=== PATIENT | male | born 1995 | race Caucasian/White ===

== ENCOUNTER 2018-05-29 13:36 | Emergency (ER) | payer SELFPAY ==
--- NOTE | 2018-05-29 14:58 | RAD REPORT ---
EXAM DESCRIPTION: RAD - Chest Single View - 05/29/2018 2:53 pm CLINICAL HISTORY: Chest pain;Cough Chest pain. COMPARISON: CHEST PA AND LAT 2 VIEW dated 03/09/2014 FINDINGS: Portable technique limits examination quality. The lungs are grossly clear. The heart is normal in size. No displaced fractures. IMPRESSION: No acute intrathoracic process suspected.
--- NOTE | 2018-05-29 16:02 | EDPHYS ---
Physician Documentation [facility] Name: Yunier Mejias Age: 22 yrs Sex: Male : 1995 Arrival Date: 05/29/2018 Time: 13:39 Bed 6 Private MD: ED Physician Milton Helm HPI: 05/30 06:16 This 22 yrs old Male presents to ER via Ambulatory with complaints of Cough, kdr Diarrhea. 06:16 The patient or guardian reports airway noise, cough, that is intermittent, described as kdr mild, flu symptoms. Onset: The symptoms/episode began/occurred gradually, 2 day(s) ago. Severity of symptoms: At their worst the symptoms were mild, in the emergency department the symptoms are unchanged. Modifying factors: The symptoms are alleviated by nothing, the symptoms are aggravated by nothing. Associated signs and symptoms: Pertinent positives: diarrhea, Pertinent negatives: chest pain, ear ache, nausea, rhinorrhea, sore throat, vomiting. The patient has not experienced similar symptoms in the past. The patient has not recently seen a physician. Historical: - Allergies: 05/29 13:43 No Known Allergies; ss - Home Meds: 13:43 None [Active]; ss - PMHx: 13:43 None; ss - PSHx: 13:43 Appendectomy; ss - Immunization history:: Adult Immunizations up to date. - Social history:: Smoking status: Patient/guardian denies using tobacco. - Ebola Screening: : Patient denies exposure to infectious person Patient denies travel to an Ebola-affected area in the 21 days before illness onset No symptoms or risks identified at this time. ROS: 05/30 06:16 Constitutional: Negative for fever, chills, and weight loss, Eyes: Negative for injury, kdr pain, redness, and discharge, Neck: Negative for injury, pain, and swelling, Cardiovascular: Negative for chest pain, palpitations, and edema, Back: Negative for injury and pain, MS/Extremity: Negative for injury and deformity, Skin: Negative for injury, rash, and discoloration, Neuro: Negative for headache, weakness, numbness, tingling, and seizure activity. Psych: Negative for depression, anxiety, suicide ideation, homicidal ideation, and hallucinations, Allergy/Immunology: Negative for hives, rash, and allergies, Endocrine: Negative for neck swelling, polydipsia, polyuria, polyphagia, and marked weight changes. ENT: Positive for nasal discharge, rhinorrhea, Negative for drainage from ear(s), ear pain, foreign body sensation, hearing loss, pulling at ears, Teeth pain tinnitus, sinus congestion, dental pain, difficulty swallowing, difficulty handling secretions, hoarseness. Respiratory: Positive for cough, with no reported sputum, shortness of breath, on exertion. Negative for dyspnea on exertion, pleurisy, sputum production. Abdomen/GI: Positive for diarrhea, Negative for abdominal pain, nausea and vomiting, abdominal distension, anorexia, dysphagia, hematemesis, black/tarry stool, rectal pain, rectal bleeding. Exam: 06:16 Constitutional: This is a well developed, well nourished patient who is awake, alert, kdr and in no acute distress. Head/Face: Normocephalic, atraumatic. Eyes: Pupils equal round and reactive to light, extra-ocular motions intact. Lids and lashes normal. Conjunctiva and sclera are non-icteric and not injected. Cornea within normal limits. Periorbital areas with no swelling, redness, or edema. ENT: Nares patent. No nasal discharge, no septal abnormalities noted. Tympanic membranes are normal and external auditory canals are clear. Oropharynx with no redness, swelling, or masses, exudates, or evidence of obstruction, uvula midline. Mucous membranes moist. Neck: Trachea midline, no thyromegaly or masses palpated, and no cervical lymphadenopathy. Supple, full range of motion without nuchal rigidity, or vertebral point tenderness. No Meningismus. Chest/axilla: Normal chest wall appearance and motion. Nontender with no deformity. No lesions are appreciated. Cardiovascular: Regular rate and rhythm with a normal S1 and S2. No gallops, murmurs, or rubs. Normal PMI, no JVD. No pulse deficits. Respiratory: Lungs have equal breath sounds bilaterally, clear to auscultation and percussion. No rales, rhonchi or wheezes noted. No increased work of breathing, no retractions or nasal flaring. Abdomen/GI: Soft, non-tender, with normal bowel sounds. No distension or tympany. No guarding or rebound. No evidence of tenderness throughout. Back: No spinal tenderness. No costovertebral tenderness. Full range of motion. Skin: Warm, dry with normal turgor. Normal color with no rashes, no lesions, and no evidence of cellulitis. MS/ Extremity: Pulses equal, no cyanosis. Neurovascular intact. Full, normal range of motion. Neuro: Awake and alert, GCS 15, oriented to person, place, time, and situation. Cranial nerves II-XII grossly intact. Motor strength 5/5 in all extremities. Sensory grossly intact. Cerebellar exam normal. Normal gait. Psych: Awake, alert, with orientation to person, place and time. Behavior, mood, and affect are within normal limits. Vital Signs: 05/29 13:43 BP 137 / 89; Pulse 85; Resp 15; Temp 98.5(TE); Pulse Ox 97% on R/A; Weight 72.57 kg; ss Height 5 ft. 11 in. (180.34 cm); Pain 5/10; 15:45 BP 122 / 78; Pulse 81; Resp 18; Temp 97.9; Pulse Ox 99% on R/A; ph 13:43 Body Mass Index 22.32 (72.57 kg, 180.34 cm) ss MDM: 16:01 Patient medically screened. kdr 05/30 06:16 Data reviewed: vital signs, nurses notes, lab test result(s), radiologic studies. kdr Counseling: I had a detailed discussion with the patient and/or guardian regarding: the historical points, exam findings, and any diagnostic results supporting the discharge/admit diagnosis, lab results, radiology results, the need for outpatient follow up. 05/29 14:02 Order name: Flu; Complete Time: 15:55 kdr 05/29 14:02 Order name: CXR XRAY; Complete Time: 15:55 kdr Administered Medications: No medications were administered Disposition: 05/29/18 16:01 Discharged to Home. Impression: Cough, Acute upper respiratory infection, unspecified, Viral infection, unspecified, Diarrhea, unspecified. - Condition is Stable. - Discharge Instructions: Upper Respiratory Infection, Adult, Diarrhea, Adult, [id number]. - Prescriptions for Tessalon Perles 100 mg Oral Capsule - take 1 capsule by ORAL route every 8 hours As needed; 15 capsule. Lomotil 2.5- 0.025 mg Oral Tablet - take 1 tablet by ORAL route every 6 hours As needed; 20 tablet. - Medication Reconciliation Form, Thank You Letter, Work release form form. - Follow up: Private Physician; When: 2 - 3 days; Reason: If symptoms return, Further diagnostic work-up, Recheck today's complaints, Continuance of care, Re-evaluation by your physician. - Problem is new. - Symptoms have improved. Signatures: Dispatcher [employer] Milton Mercedes MD MD kdr Nazanin Barboza RN RN ss Ashley Amador RN RN ph Corrections: (The following items were deleted from the chart) 05/29 16:28 16:01 05/29/2018 16:01 Discharged to Home. Impression: Cough; Acute upper respiratory ph infection, unspecified; Viral infection, unspecified; Diarrhea, unspecified. Condition is Stable. Forms are Medication Reconciliation Form, Thank You Letter, Antibiotic Education, Prescription Opioid Use. Follow up: Private Physician; When: 2 - 3 days; Reason: If symptoms return, Further diagnostic work-up, Recheck today's complaints, Continuance of care, Re-evaluation by your physician. Problem is new. Symptoms have improved. kdr
--- NOTE | 2018-05-29 16:02 | ER ---
Nurse's Notes [facility] Name: Yunier Mejias Age: 22 yrs Sex: Male : 1995 Arrival Date: 05/29/2018 Time: 13:39 Bed 6 Private MD: Diagnosis: Cough;Acute upper respiratory infection, unspecified;Viral infection, unspecified;Diarrhea, unspecified Presentation: 05/29 13:42 Presenting complaint: Patient states: fever, diarrhea, painful cough and nasal ss drainage/congestion that began 2 days ago. Transition of care: patient was not received from another setting of care. Onset of symptoms was May 27, 2018. Risk Assessment: Do you want to hurt yourself or someone else? Patient reports no desire to harm self or others. Initial Sepsis Screen: Does the patient meet any 2 criteria? No. Patient's initial sepsis screen is negative. Does the patient have a suspected source of infection? No. Patient's initial sepsis screen is negative. Care prior to arrival: None. 13:42 Method Of Arrival: Ambulatory ss 13:42 Acuity: MIGUEL 3 ss Historical: - Allergies: 13:43 No Known Allergies; ss - Home Meds: 13:43 None [Active]; ss - PMHx: 13:43 None; ss - PSHx: 13:43 Appendectomy; ss - Immunization history:: Adult Immunizations up to date. - Social history:: Smoking status: Patient/guardian denies using tobacco. - Ebola Screening: : Patient denies exposure to infectious person Patient denies travel to an Ebola-affected area in the 21 days before illness onset No symptoms or risks identified at this time. Screenin:02 Abuse screen: Denies threats or abuse. Denies injuries from another. Nutritional ph screening: No deficits noted. Tuberculosis screening: No symptoms or risk factors identified. Fall Risk None identified. Assessment: 14:10 General: Appears in no apparent distress. uncomfortable, slender, Behavior is calm, ph cooperative, appropriate for age, Reports fever for 1-2 days. Pain: Complains of pain in chest Pain does not radiate. Quality of pain is described as sharp, "sore" Pain began gradually. Neuro: Level of Consciousness is awake, alert, obeys commands, Oriented to person, place, time, situation. Cardiovascular: Reports chest pain, Denies lightheadedness, nausea, shortness of breath, syncope, Capillary refill < 3 seconds in bilateral fingers Patient's skin is warm and dry. Respiratory: Reports cough that is productive, pain with cough pain with movement pain with respiration Airway is patent Respiratory effort is even, unlabored, Respiratory pattern is regular, symmetrical, Breath sounds are clear bilaterally. GI: Abdomen is flat, non-distended, Reports diarrhea, Patient currently denies abdominal pain, nausea, vomiting. : No signs and/or symptoms were reported regarding the genitourinary system. EENT: Reports nasal congestion nasal discharge Denies pain when swallowing. Derm: Skin is intact, is healthy with good turgor, Skin is pink, warm \\T\\ dry. 15:30 Reassessment: Patient appears in no apparent distress at this time. Patient and/or ph family updated on plan of care and expected duration. Pain level reassessed. Patient is alert, oriented x 3, equal unlabored respirations, skin warm/dry/pink. Vital Signs: 13:43 BP 137 / 89; Pulse 85; Resp 15; Temp 98.5(TE); Pulse Ox 97% on R/A; Weight 72.57 kg; ss Height 5 ft. 11 in. (180.34 cm); Pain 5/10; 15:45 BP 122 / 78; Pulse 81; Resp 18; Temp 97.9; Pulse Ox 99% on R/A; ph 13:43 Body Mass Index 22.32 (72.57 kg, 180.34 cm) ED Course: 13:39 Patient arrived in ED. mr 13:42 Triage completed. ss 13:43 Arm band placed on right wrist. ss 13:49 Milton Helm MD is Attending Physician. kdr 14:12 Ashley Amador, GLENN is Primary Nurse. ph 14:53 CXR XRAY In Process Unspecified. EDMS 15:02 Patient has correct armband on for positive identification. Bed in low position. Call ph light in reach. Pulse ox on. NIBP on. 15:04 Patient maintains SpO2 saturation greater than 95% on room air. ph 15:30 No provider procedures requiring assistance completed. Patient did not have IV access ph during this emergency room visit. Administered Medications: No medications were administered Outcome: 16:01 Discharge ordered by . kdr 16:28 Patient left the ED. ph 16:28 Discharged to home ambulatory. ph 16:28 Condition: good 16:28 Discharge instructions given to patient, Instructed on discharge instructions, follow up and referral plans. medication usage, Demonstrated understanding of instructions, follow-up care, medications, Prescriptions given X 2. Signatures: Dispatcher [employer] Milton Mercedes MD MD kdr Rivera, Mary mr Nazanin Barboza RN RN Ashley Amador RN RN
== END 2018-05-29 16:28 | disposition home or self-care (01) ==
LOC: ER 13:36
DX: J06.9 Acute upper respiratory infection, unspecified (principal); R19.7 Diarrhea, unspecified
CPT/HCPCS: 71045; 87804; 99284

== ENCOUNTER 2018-10-23 14:25 | Emergency (ER) | payer SELFPAY ==
[2018-10-23 15:50] LABS: Absolute Lymphocytes (CBC) 1.3 K/uL (0.7-4.9); Basophils % 0.5 % (0-1.3); Hematocrit 41.8 % (39.6-49.0); Lymphocytes % 19.6 % (15.3-44.8); MPV 8.6 fL (7.6-11.3); RBC Red Blood Cell Count 4.74 M/uL (4.33-5.43)
--- NOTE | 2018-10-23 15:52 | ER ---
Nurse's Notes [facility] Name: Yunier Mejias Age: 22 yrs Sex: Male : 1995 Arrival Date: 10/23/2018 Time: 14:29 Bed 24 Private MD: None, None Diagnosis: Generalized abdominal pain Presentation: 10/23 14:36 Presenting complaint: Patient states: Mid abdominal pain intermittent for 1 month. hb Diarrhea x 2 days. Transition of care: patient was not received from another setting of care. Onset of symptoms was August 2018. Risk Assessment: Do you want to hurt yourself or someone else? Patient reports no desire to harm self or others. Initial Sepsis Screen: Does the patient meet any 2 criteria? No. Patient's initial sepsis screen is negative. Does the patient have a suspected source of infection? No. Patient's initial sepsis screen is negative. Care prior to arrival: None. 14:36 Method Of Arrival: Ambulatory hb 14:36 Acuity: MIGUEL 3 hb Triage Assessment: 14:37 General: Appears in no apparent distress. comfortable, Behavior is calm, cooperative, hb appropriate for age. Pain: Complains of pain in right lower quadrant and left lower quadrant. Neuro: Level of Consciousness is awake, alert, obeys commands, Oriented to person, place, time, situation, Appropriate for age. Respiratory: Airway is patent Respiratory effort is even, unlabored, Respiratory pattern is regular, symmetrical. GI: Abdomen is flat, non-distended, Reports lower abdominal pain, diarrhea. Derm: Skin is intact, is healthy with good turgor, Skin is pink, warm \T\ dry. normal. Historical: - Allergies: 14:37 PENICILLINS; hb - Immunization history:: Adult Immunizations up to date. - Social history:: Smoking status: Patient/guardian denies using tobacco. - Ebola Screening: : Patient negative for fever greater than or equal to 101.5 degrees Fahrenheit, and additional compatible Ebola Virus Disease symptoms Patient denies exposure to infectious person Patient denies travel to an Ebola-affected area in the 21 days before illness onset No symptoms or risks identified at this time. Screenin:54 Abuse screen: Denies threats or abuse. Denies injuries from another. Nutritional mg2 screening: No deficits noted. Tuberculosis screening: No symptoms or risk factors identified. Never had TB. 14:57 Fall Risk None identified. mg2 Assessment: 14:55 General: Appears in no apparent distress. comfortable, Behavior is calm, cooperative. mg2 Pain: Complains of pain in abdomen and left lower quadrant and right lower quadrant Pain does not radiate. Pain Quality of pain is described as aching, Pain began gradually. Neuro: Level of Consciousness is awake, alert, obeys commands, Oriented to person, place, time, situation. Cardiovascular: Capillary refill < 3 seconds Patient's skin is warm and dry. Respiratory: Airway is patent Respiratory effort is even, unlabored, Respiratory pattern is regular, symmetrical. GI: Bowel sounds present X 4 quads. Abd is soft and non tender. : No signs and/or symptoms were reported regarding the genitourinary system. EENT: No signs and/or symptoms were reported regarding the EENT system. Derm: Skin is intact, is healthy with good turgor, Skin is pink, warm \T\ dry. normal. Musculoskeletal: Circulation, motion, and sensation intact. Capillary refill < 3 seconds. 16:03 Reassessment: patient refused to wait for the result. AMA form signed by the patient. mg2 not in pain, discharged in good condition. Vital Signs: 14:37 BP 115 / 69; Pulse 74; Resp 20; Temp 98.9; Pulse Ox 97% on R/A; Weight 70.31 kg; Height hb 5 ft. 11 in. (180.34 cm); 16:03 BP 120 / 70; Pulse 75; Resp 18; Temp 98; Pulse Ox 100% on R/A; Pain 1/10; mg2 14:37 Body Mass Index 21.62 (70.31 kg, 180.34 cm) hb ED Course: 14:29 Patient arrived in ED. dl4 14:29 None, None is Private Physician. dl4 14:37 Triage completed. hb 14:37 Arm band placed on left wrist. Patient placed in waiting room, Patient notified of wait hb time. 14:40 Charline Nichols [facility]C [facility] kb 14:40 Paul Barr MD is Attending Physician. kb 14:53 Robert Dunham, GLENN is Primary Nurse. mg2 14:57 Patient has correct armband on for positive identification. mg2 14:57 No provider procedures requiring assistance completed. mg2 15:39 Patient maintains SpO2 saturation greater than 95% on room air. jp3 15:39 Initial lab(s) drawn, by me, sent to lab. Urine collected: clean catch specimen, clear, jp3 irasema colored. Inserted saline lock: 20 gauge in right antecubital area, using aseptic technique. Blood collected. 15:42 Basic Metabolic Panel Sent. jp3 15:42 CBC with Diff Sent. jp3 15:42 Hepatic Function Sent. jp3 15:42 Lipase Sent. jp3 16:04 IV discontinued, intact, bleeding controlled, No redness/swelling at site. Pressure mg2 dressing applied. Administered Medications: No medications were administered Outcome: 16:04 AMA AMA form signed mg2 16:04 Condition: stable 16:04 Discharge instructions given to patient, Instructed on come back if pain is worsening. Demonstrated understanding of instructions. 16:05 Patient left the ED. mg2 Signatures: Charline Nichols, PATCH[employer]LING [employer]ALL-C PATCH[employer] BOWLING BALL-Ckb Zoey Oneil RN RN Robert Dunham RN RN mg2 Abraham Reddy jp3 Karan Vargas dl4
--- NOTE | 2018-10-23 15:53 | EDPHYS ---
Physician Documentation [facility] Name: Yunier Mejias Age: 22 yrs Sex: Male : 1995 Arrival Date: 10/23/2018 Time: 14:29 Bed 24 Private MD: None, None ED Physician Paul Barr HPI: 10/23 15:49 This 22 yrs old Male presents to ER via Ambulatory with complaints of kb Abdominal Pain. 15:49 The patient presents with abdominal pain in the lower abdomen. Onset: The kb symptoms/episode began/occurred 1 month(s) ago, and became worse and became persistent this morning. The symptoms do not radiate. Associated signs and symptoms: Pertinent positives: diarrhea, Pertinent negatives: nausea and vomiting, fever. The symptoms are described as intermittent. Modifying factors: The symptoms are alleviated by nothing, the symptoms are aggravated by nothing. Severity of pain: At its worst the pain was moderate in the emergency department the pain is unchanged. The patient has not experienced similar symptoms in the past. The patient has not recently seen a physician. 15:52 Reports abd pain that has been intermittent for the past month. States pain started kb again at approx 0300 and has been constant. . Historical: - Allergies: 14:37 PENICILLINS; hb - Immunization history:: Adult Immunizations up to date. - Social history:: Smoking status: Patient/guardian denies using tobacco. - Ebola Screening: : Patient negative for fever greater than or equal to 101.5 degrees Fahrenheit, and additional compatible Ebola Virus Disease symptoms Patient denies exposure to infectious person Patient denies travel to an Ebola-affected area in the 21 days before illness onset No symptoms or risks identified at this time. ROS: 15:48 Constitutional: Negative for fever, chills, and weight loss, Cardiovascular: Negative kb for chest pain, palpitations, and edema, Respiratory: Negative for shortness of breath, cough, wheezing, and pleuritic chest pain, Back: Negative for injury and pain, MS/Extremity: Negative for injury and deformity, Skin: Negative for injury, rash, and discoloration, Neuro: Negative for headache, weakness, numbness, tingling, and seizure. 15:48 Abdomen/GI: Positive for abdominal pain, diarrhea, Negative for nausea and vomiting. Exam: 15:48 Constitutional: This is a well developed, well nourished patient who is awake, alert, kb and in no acute distress. Head/Face: Normocephalic, atraumatic. Chest/axilla: Normal chest wall appearance and motion. Nontender with no deformity. No lesions are appreciated. Cardiovascular: Regular rate and rhythm with a normal S1 and S2. No gallops, murmurs, or rubs. Normal PMI, no JVD. No pulse deficits. Respiratory: Lungs have equal breath sounds bilaterally, clear to auscultation and percussion. No rales, rhonchi or wheezes noted. No increased work of breathing, no retractions or nasal flaring. Back: No spinal tenderness. No costovertebral tenderness. Full range of motion. Skin: Warm, dry with normal turgor. Normal color with no rashes, no lesions, and no evidence of cellulitis. MS/ Extremity: Pulses equal, no cyanosis. Neurovascular intact. Full, normal range of motion. Neuro: Awake and alert, GCS 15, oriented to person, place, time, and situation. Cranial nerves II-XII grossly intact. Motor strength 5/5 in all extremities. Sensory grossly intact. Cerebellar exam normal. Normal gait. 15:48 Abdomen/GI: Inspection: abdomen appears normal, Bowel sounds: normal, in all quadrants, Palpation: soft, in all quadrants, mild abdominal tenderness, in the right upper quadrant and left upper quadrant. Vital Signs: 14:37 BP 115 / 69; Pulse 74; Resp 20; Temp 98.9; Pulse Ox 97% on R/A; Weight 70.31 kg; Height hb 5 ft. 11 in. (180.34 cm); 16:03 BP 120 / 70; Pulse 75; Resp 18; Temp 98; Pulse Ox 100% on R/A; Pain 1/10; mg2 14:37 Body Mass Index 21.62 (70.31 kg, 180.34 cm) hb MDM: 15:09 Patient medically screened. kb 15:48 Data reviewed: vital signs, nurses notes. Data interpreted: Pulse oximetry: on room air kb is 97 %. Interpretation: normal. 15:51 ED course: Pt states he has somewhere to be so he has to leave. kb 10/23 15:25 Order name: Basic Metabolic Panel 10/23 15:25 Order name: CBC with Diff; Complete Time: 15:55 kb 10/23 15:25 Order name: Hepatic Function kb 10/23 15:25 Order name: Lipase kb 10/23 15:25 Order name: IV Saline Lock; Complete Time: 15:42 kb 10/23 15:34 Order name: Urine Dipstick--Ancillary (enter results) bd 10/23 15:25 Order name: Labs collected and sent; Complete Time: 15:42 kb Administered Medications: No medications were administered Disposition: 17:21 Co-signature as Attending Physician, Paul Barr MD. rn Disposition: 10/23/18 15:51 Patient has left against medical advice. Impression: Generalized abdominal pain. - Patients states they are going to Home. - Condition is Stable. Work release form form. Follow up: Emergency Department; When: As needed; Reason: Worsening of condition. Follow up: Private Physician; When: 2 - 3 days; Reason: Recheck today's complaints, Continuance of care, Re-evaluation by your physician. - Problem is new. - Symptoms are unchanged. Signatures: Dispatcher [employer] EDCharline Le, SHIP CLEANER-C SHIP CLEANER-Ckb Paul Barr MD MD rn Baxter, Heather, RN RN hb Gardose, Michele, RN RN mg2 Corrections: (The following items were deleted from the chart) 16:05 15:51 10/23/2018 15:51 Patients has left against medical advice. Impression: mg2 Generalized abdominal pain. Patient states they are going to Home. Condition is Stable. Follow up: Emergency Department; When: As needed; Reason: Worsening of condition. Follow up: Private Physician; When: 2 - 3 days; Reason: Recheck today's complaints, Continuance of care, Re-evaluation by your physician. Problem is new. Symptoms are unchanged. kb
[2018-10-23 16:03] LABS: Albumin 3.9 g/dL (3.4-5.0); Bilirubin Direct 0.3 mg/dL (0-0.2); Bilirubin Total 1.6 mg/dL (0.2-1.0); Potassium 3.9 mmol/L (3.5-5.1); Protein, Total 7.4 g/dL (6.4-8.2)
[2018-10-23 16:05] LABS: Urine Blood NEGATIVE (NEG); Urine Glucose NEGATIVE (NEG); Urine Protein NEGATIVE (NEG); Urine pH 7.5 (5.0-7.0)
== END 2018-10-23 16:05 | disposition left against medical advice (07) ==
LOC: ER 14:25
DX: R10.30 Lower abdominal pain, unspecified (principal); Z88.0 Allergy status to penicillin; Z53.29 Procedure and treatment not carried out because of patient's decision for other reasons
CPT/HCPCS: 36415; 80048; 80076; 81003; 83690; 85025; 99284

== ENCOUNTER 2019-05-31 20:42 | Emergency (ER) | payer SELFPAY ==
[2019-05-31] MEDS ORDERED: HYDROCODONE/APAP 10/325 TAB ONE (21:09)
[2019-05-31] MEDS ORDERED: IBUPROFEN 200 MG TAB PO ONE (21:10)
--- NOTE | 2019-05-31 21:35 | EDPHYS ---
Physician Documentation [facility] Name: Yunier Mejias Age: 23 yrs Sex: Male : 1995 Arrival Date: 05/31/2019 Time: 20:43 Bed 16 Private MD: ED Physician Del Solo HPI: 21:00 This 23 yrs old Male presents to ER via Ambulatory with complaints of Hand la1 Injury. 21:00 The patient or guardian reports pain, swelling, tenderness. The complaints affect the la1 dorsal aspect of right wrist. Context: resulted from a fall, on an outstretched hand. Onset: The symptoms/episode began/occurred yesterday. Modifying factors: The symptoms are alleviated by nothing, the symptoms are aggravated by movement. Associated signs and symptoms: Pertinent negatives: numbness distally, tingling distally. Severity of symptoms: At their worst the symptoms were moderate. The patient has not experienced similar symptoms in the past. Historical: - Allergies: 20:56 PENICILLINS; ea - Home Meds: 20:56 None [Active]; ea - PMHx: 20:56 None; ea - PSHx: 20:56 Appendectomy; ea - Immunization history:: Adult Immunizations up to date. - Social history:: Smoking status: Patient reports the use of cigarette tobacco products, denies chronic smoking, but will smoke occasionally. ROS: 21:02 Constitutional: Negative for fever, chills, and weight loss, Eyes: Negative for injury, la1 pain, redness, and discharge, ENT: Negative for injury, pain, and discharge, Neck: Negative for injury, pain, and swelling, Cardiovascular: Negative for chest pain, palpitations, and edema, Respiratory: Negative for shortness of breath, cough, wheezing, and pleuritic chest pain, Abdomen/GI: Negative for abdominal pain, nausea, vomiting, diarrhea, and constipation, Back: Negative for injury and pain. 21:02 Neuro: Negative for headache, weakness, numbness, tingling, and seizure. 21:02 MS/extremity: Positive for pain, swelling, tenderness, of the dorsal aspect of right wrist. Exam: 21:02 Constitutional: This is a well developed, well nourished patient who is awake, alert, la1 and in no acute distress. Head/Face: Normocephalic, atraumatic. Eyes: Pupils equal round and reactive to light, extra-ocular motions intact. ENT: Mucous membranes moist. Neck: Trachea midline, Chest/axilla: Normal chest wall appearance and motion. Nontender with no deformity. No lesions are appreciated. Cardiovascular: Regular rate and rhythm with a normal S1 and S2. Respiratory: Lungs have equal breath sounds bilaterally, clear to auscultation Abdomen/GI: Soft, non-tender, with normal bowel sounds. Back: No spinal tenderness. No costovertebral tenderness. Full range of motion. 21:02 Musculoskeletal/extremity: ROM: limited active range of motion due to pain, limited passive range of motion due to pain, in the palmar aspect of right wrist and dorsal aspect of right wrist, Pulses: noted to be 3+ in the right radial artery and left radial artery, Sensation intact. Vital Signs: 20:52 BP 136 / 86; Pulse 98; Resp 18; Temp 99.3; Pulse Ox 98% ; Weight 72.57 kg; Height 5 ft. ea 11 in. (180.34 cm); Pain 10/10; 21:00 BP 131 / 91; Pulse 85; Temp 99.3; Pulse Ox 100% on R/A; Pain 10/10; fu 21:15 BP 130 / 77; Pulse 82; Resp 18; Pulse Ox 98% on R/A; Pain 9/10; fu 20:52 Body Mass Index 22.32 (72.57 kg, 180.34 cm) ea MDM: 21:00 Patient medically screened. la1 21:31 Data reviewed: vital signs, nurses notes, EKG, I have discussed the patient's la1 presentation/case with the attending Emergency Department Physician; and as a result, I will discharge patient. Data interpreted: Pulse oximetry: on room air is 100 %. Interpretation: normal. Test interpretation: by ED physician or midlevel provider: plain radiologic studies, no obvious fracture identified, pt non tender to palpation on ulnar side of wrist complains more of radial sided distal wrist pain. + snuff box tenderness, will splint and have FU with ortho. Counseling: I had a detailed discussion with the patient and/or guardian regarding: the historical points, exam findings, and any diagnostic results supporting the discharge/admit diagnosis, radiology results, the need for outpatient follow up, a orthopedic surgeon, to return to the emergency department if symptoms worsen or persist or if there are any questions or concerns that arise at home. 20:59 Order name: Wrist Right 3 View XRAY la1 21:34 Order name: Thumb Spica Splint; Complete Time: 22:07 la1 Administered Medications: 21:08 Drug: [place] 10 mg-325 mg 1 tabs Route: PO; fu 22:10 Follow up: Response: Pain is decreased fu 21:08 Drug: Ibuprofen 600 mg Route: PO; fu 22:10 Follow up: Response: Pain is decreased fu Disposition: 05/31 02:12 Co-signature as Attending Physician, Del Solo MD I agree with the assessment and tw4 plan of care. Disposition: 05/31/19 21:35 Discharged to Home. Impression: Pain in right wrist. - Condition is Stable. - Discharge Instructions: Joint Pain, Cast or Splint Care, Adult, Musculoskeletal Pain, Scaphoid Fracture, Wrist Pain, [id number]. - Work release form, Medication Reconciliation Form, Thank You Letter form. - Follow up: Private Physician; When: 5 - 6 days; Reason: Recheck today's complaints, Re-evaluation by your physician. - Problem is new. - Symptoms have improved. Signatures: Dispatcher [employer] EDMS Mario Ceja, SKIRT PANEL ASSEMBLER-C SKIRT PANEL ASSEMBLER-Cla1 Deedee Tirado, Meet Coles RN, ea RN Del Gill MD MD tw4 Corrections: (The following items were deleted from the chart) 22:16 21:35 05/31/2019 21:35 Discharged to Home. Impression: Pain in right wrist. Condition fu is Stable. Forms are Medication Reconciliation Form, Thank You Letter, Antibiotic Education, Prescription Opioid Use. Follow up: Private Physician; When: 5 - 6 days; Reason: Recheck today's complaints, Re-evaluation by your physician. Problem is new. Symptoms have improved. la1
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
[2019-05-31 22:23] VITALS: TEMP 99.3
[2019-05-31 22:26] VITALS: BP 130/77; O2SAT 98
--- NOTE | 2019-06-01 11:58 | RAD REPORT ---
EXAM DESCRIPTION: RAD - Wrist Right 3 View - 05/31/2019 9:27 pm CLINICAL HISTORY: PAIN Pain COMPARISON: Wrist Right 3 View dated 12/31/2012 FINDINGS: No fracture or dislocation seen. Soft tissue swelling is seen along the dorsum of the wri st.
== END 2019-05-31 22:16 | disposition home or self-care (01) ==
LOC: ER 20:42
DX: M25.531 Pain in right wrist (principal); Z88.0 Allergy status to penicillin; V18.0XXA Pedal cycle driver injured in noncollision transport accident in nontraffic accident, initial encounter; Y93.89 Activity, other specified; Y92.9 Unspecified place or not applicable
CPT/HCPCS: 99283

== ENCOUNTER 2020-05-05 18:08 | Emergency (ER) | payer OTHER, SELFPAY ==
[2020-05-05] MEDS ORDERED: IBUPROFEN 200 MG TAB PO ONE (20:36)
[2020-05-05] MEDS ORDERED: IBUPROFEN 400 MG TAB ONE (20:36)
--- NOTE | 2020-05-05 20:42 | RAD REPORT ---
EXAM DESCRIPTION: RAD - Shoulder Right 2 View - 05/05/2020 8:35 pm CLINICAL HISTORY: Right shoulder pain FINDINGS: No fracture or dislocation is seen.
--- NOTE | 2020-05-05 20:52 | EDPHYS ---
Physician Documentation [facility] Name: Yunier Mejias Age: 24 yrs Sex: Male : 1995 Arrival Date: 05/05/2020 Time: 18:15 Bed 2 Private MD: ED Physician Russell Del Castillo HPI: 05/05 20:22 This 24 yrs old Male presents to ER via Ambulatory with complaints of Arm lucrecia Pain, Hand Pain. 20:22 The patient or guardian complains of decreased range of motion, pain, that is acute. lucrecia The complaints affect the anterior aspect of right shoulder, right hand and posterior aspect of right shoulder. Context: The problem was sustained. Onset: The symptoms/episode began/occurred 3 day(s) ago. Treatment prior to arrival includes: no previous treatment, elevation of the extremity. Modifying factors: The symptoms are alleviated by remaining still, the symptoms are aggravated by movement, lifting weight, bending arm. Associated signs and symptoms: The patient has no apparent associated signs or symptoms. Severity of symptoms: At their worst the symptoms were moderate, in the emergency department the symptoms are unchanged. The patient has not experienced similar symptoms in the past. Historical: - Allergies: 18:30 PENICILLINS; ll1 - PMHx: 18:30 None; ll1 - PSHx: 18:30 Appendectomy; ll1 - Immunization history:: Flu vaccine is not up to date. - Social history:: Smoking status: Patient denies any tobacco usage or history of. - Family history:: not pertinent. ROS: 20:22 Constitutional: Negative for fever, chills, and weight loss, Eyes: Negative for injury, lucrecia pain, redness, and discharge, ENT: Negative for injury, pain, and discharge, Neck: Negative for injury, pain, and swelling, Cardiovascular: Negative for chest pain, palpitations, and edema, Respiratory: Negative for shortness of breath, cough, wheezing, and pleuritic chest pain, Abdomen/GI: Negative for abdominal pain, nausea, vomiting, diarrhea, and constipation, Back: Negative for injury and pain, : Negative for injury, bleeding, discharge, and swelling, Skin: Negative for injury, rash, and discoloration, Neuro: Negative for headache, weakness, numbness, tingling, and seizure, Psych: Negative for depression, anxiety, suicide ideation, homicidal ideation, and hallucinations, Allergy/Immunology: Negative for hives, rash, and allergies, Endocrine: Negative for neck swelling, polydipsia, polyuria, polyphagia, and marked weight changes, Hematologic/Lymphatic: Negative for swollen nodes, abnormal bleeding, and unusual bruising. 20:22 MS/extremity: Positive for injury or acute deformity, decreased range of motion, pain, tenderness, of the anterior aspect of right shoulder, right hand and posterior aspect of right shoulder. Exam: 20:22 Constitutional: This is a well developed, well nourished patient who is awake, alert, lucrecia and in no acute distress. Head/Face: Normocephalic, atraumatic. Eyes: Pupils equal round and reactive to light, extra-ocular motions intact. Lids and lashes normal. Conjunctiva and sclera are non-icteric and not injected. Cornea within normal limits. Periorbital areas with no swelling, redness, or edema. ENT: Nares patent. No nasal discharge, no septal abnormalities noted. Tympanic membranes are normal and external auditory canals are clear. Oropharynx with no redness, swelling, or masses, exudates, or evidence of obstruction, uvula midline. Mucous membranes moist. Neck: Trachea midline, no thyromegaly or masses palpated, and no cervical lymphadenopathy. Supple, full range of motion without nuchal rigidity, or vertebral point tenderness. No Meningismus. Chest/axilla: Normal chest wall appearance and motion. Nontender with no deformity. No lesions are appreciated. Cardiovascular: Regular rate and rhythm with a normal S1 and S2. No gallops, murmurs, or rubs. Normal PMI, no JVD. No pulse deficits. Respiratory: Lungs have equal breath sounds bilaterally, clear to auscultation and percussion. No rales, rhonchi or wheezes noted. No increased work of breathing, no retractions or nasal flaring. Abdomen/GI: Soft, non-tender, with normal bowel sounds. No distension or tympany. No guarding or rebound. No evidence of tenderness throughout. Back: No spinal tenderness. No costovertebral tenderness. Full range of motion. Skin: Warm, dry with normal turgor. Normal color with no rashes, no lesions, and no evidence of cellulitis. Neuro: Awake and alert, GCS 15, oriented to person, place, time, and situation. Cranial nerves II-XII grossly intact. Motor strength 5/5 in all extremities. Sensory grossly intact. Cerebellar exam normal. Normal gait. Psych: Awake, alert, with orientation to person, place and time. Behavior, mood, and affect are within normal limits. 20:22 Musculoskeletal/extremity: Extremities: grossly normal except: noted in the anterior aspect of right shoulder and posterior aspect of right shoulder: decreased ROM, pain, noted in the lateral aspect of right hand, dorsal aspect of proximal phalanx of right thumb, palmar aspect of proximal phalanx of right thumb and heel of right hand: decreased ROM, pain, tenderness. Vital Signs: 18:28 BP 129 / 77; Pulse 78; Resp 16; Temp 98.7; Pulse Ox 95% on R/A; Weight 73.03 kg; Height ll1 5 ft. 11 in. (180.34 cm); Pain 8/10; 21:00 BP 124 / 78; Pulse 80; Resp 18; Pulse Ox 99% on R/A; wh 18:28 Body Mass Index 22.45 (73.03 kg, 180.34 cm) ll1 MDM: 19:54 Patient medically screened. [facility] 20:26 Differential diagnosis: closed fracture. Data reviewed: vital signs, nurses notes, [facility] radiologic studies. Data interpreted: teletypesetter monitor: rate is 95 beats/min, rhythm is regular, Pulse oximetry: on room air is 95 %. Test interpretation: by ED physician or midlevel provider: plain radiologic studies. Counseling: I had a detailed discussion with the patient and/or guardian regarding: the historical points, exam findings, and any diagnostic results supporting the discharge/admit diagnosis, radiology results, the need for outpatient follow up, for definitive care, 05/05 20:14 Order name: Shoulder Right (2 View) XRAY [facility] 05/05 20:14 Order name: Hand Right 3 View XRAY [facility] 05/05 20:14 Order name: Ice pack; Complete Time: 20:22 [facility] 05/05 20:46 Order name: Sling; Complete Time: 21:21 [facility] 05/05 20:46 Order name: Thumb Spica Splint; Complete Time: 21:21 [facility] Administered Medications: 20:22 Drug: Motrin 600 mg Route: PO; 21:08 Follow up: Response: No adverse reaction; Pain is decreased Disposition: 05/05/20 20:52 Discharged to Home. Impression: Pain in right shoulder, Fall due to bumping against object, Displaced fracture of base of other metacarpal bone - first mc. - Condition is Stable. - Discharge Instructions: Metacarpal Fracture, Shoulder Pain, Cryotherapy, [id number], Metacarpal Fracture, [id number], Cryotherapy. - Prescriptions for Ibuprofen 600 mg Oral Tablet - take 1 tablet by ORAL route every 6 hours As needed take with food; 20 tablet. Tylenol- Codeine #3 300-30 mg Oral Tablet - take 2 tablets by ORAL route every 6 hours As needed; 24 tablet. - Medication Reconciliation Form, Thank You Letter, Antibiotic Education, Prescription Opioid Use form. - Follow up: Private Physician; When: 2 - 3 days; Reason: Recheck today's complaints, Continuance of care, Re-evaluation by your physician. Follow up: Henry Jarrett MD; When: 2 - 3 days; Reason: Recheck today's complaints, Re-evaluation by your physician. Follow up: Harshil Haji MD; When: 2 - 3 days; Reason: Recheck today's complaints, Re-evaluation by your physician. Follow up: Stanley Olsen MD; When: 2 - 3 days; Reason: Recheck today's complaints, Continuance of care, Re-evaluation by your physician. - Problem is new. - Symptoms have improved. Signatures: Dispatcher [employer] EDMS Russell Del Castillo MD MD cha Habalo, Winsy, RN RN Kimi Galicia RN RN ll1 Corrections: (The following items were deleted from the chart) 20:53 20:52 05/05/2020 20:52 Discharged to Home. Impression: Pain in right shoulder; Fall due lucrecia to bumping against object; Displaced fracture of base of other metacarpal bone - first mc. Condition is Stable. Forms are Medication Reconciliation Form, Thank You Letter, Antibiotic Education, Prescription Opioid Use. Follow up: Private Physician; When: 2 - 3 days; Reason: Recheck today's complaints, Continuance of care, Re-evaluation by your physician. Follow up: Henry Jarrett; When: 2 - 3 days; Reason: Recheck today's complaints, Re-evaluation by your physician. Follow up: Harshil Haji; When: 2 - 3 days; Reason: Recheck today's complaints, Re-evaluation by your physician. Problem is new. Symptoms have improved. lucrecia 21:35 20:53 05/05/2020 20:52 Discharged to Home. Impression: Pain in right shoulder; Fall due wh to bumping against object; Displaced fracture of base of other metacarpal bone - first . Condition is Stable. Discharge Instructions: Metacarpal Fracture, Shoulder Pain, Cryotherapy, [id number], Metacarpal Fracture, [id number], Cryotherapy. Prescriptions for Ibuprofen 600 mg Oral Tablet - take 1 tablet by ORAL route every 6 hours As needed take with food; 20 tablet, Tylenol-Codeine #3 300-30 mg Oral Tablet - take 2 tablets by ORAL route every 6 hours As needed; 24 tablet. and Forms are Medication Reconciliation Form, Thank You Letter, Antibiotic Education, Prescription Opioid Use. Follow up: Private Physician; When: 2 - 3 days; Reason: Recheck today's complaints, Continuance of care, Re-evaluation by your physician. Follow up: Harshil Haji; When: 2 - 3 days; Reason: Recheck today's complaints, Re-evaluation by your physician. Follow up: Stanley Olsen; When: 2 - 3 days; Reason: Recheck today's complaints, Continuance of care, Re-evaluation by your physician. Problem is new. Symptoms have improved. lucrecia
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
[2020-05-05 21:41] VITALS: TEMP 98.7
[2020-05-05 21:42] VITALS: BP 124/78; O2SAT 99
== END 2020-05-05 21:35 | disposition home or self-care (01) ==
LOC: ER 18:08
PROC: 2W3GX1Z Immobilization of Right Thumb using Splint (ICD-10-PCS; principal; 2020-05-05)
DX: S62.231A Other displaced fracture of base of first metacarpal bone, right hand, initial encounter for closed fracture (principal); M25.511 Pain in right shoulder; W18.00XA Striking against unspecified object with subsequent fall, initial encounter; Y93.9 Activity, unspecified; Y92.9 Unspecified place or not applicable; Z88.0 Allergy status to penicillin
CPT/HCPCS: 99284

== ENCOUNTER 2022-03-29 13:04 | Emergency (ER) | payer OTHER, SELFPAY ==
--- OUTSIDE RECORDS SUMMARY | 2022-03-29 13:19 | XMS REPORT | Continuity of Care Document ---
:[address] [facility] t Address [address] [place] [address] Care Team Providers Name Role Phone PCP, PATIENT DOES NOT HAVE A Primary Care Physician UnavailCASSANDRA Burgess Attending Clinician Unavailable Cassandra Em MD Attending Clinician Lab, Adc Fam Pob I Attending Clinician Unavailable Amanda Dodge Attending Clinician AMANDA DAILEY Attending Clinician Unavailable TORSTEN SPENCER Attending Clinician Unavailable Rebel Dao DO Attending Clinician Doctor Unassigned, [place] Attending Clinician Unavailable Payers Payer Name Policy Type Policy Number Effective Date Expiration Date S [facility] [place] [id number] 2019 00:00:00 [facility] [id number] 2021 00:00:00 Problems This patient has no known problems. Allergies, Adverse Reactions, Alerts Allergy Allergy Status Severity Reaction(s) Onset Inactive Treating Comm ents Source Name Type Date Date Clinician Penicill Propensi Active Hives Univer s ins ty to 1-13 ity of adverse 00:00: [place] reaction 00 Medical s Branch PENICILL Drug Active Hives Univers INS Class 1-13 ity of 00:00: [place] 00 Medical Branch NO KNOWN Drug Active Univers ALLERGIE Class ity of S [facility] Social History Social Habit Start Date Stop Date Quantity Comments Source Exposure to Not sure [facility] SARS-CoV-2 (event) Medica l Branch Sex Assigned At [birth year] [facility] 00:00:00 00:00:00 Medical Branch Smoking Status Start Date Stop Date Source Unknown if ever smoked [facility] Medications Ordered Filled Start Stop Current Ordering Indication Dosage Frequency Signature Comments Components Source Medication Medication Date Date Medication? Clinician (SIG) Name Name benzonatate Yes [id number] 100mg Take 1 Univers 100 mg 1-13 capsule by ity of capsule 00:00: mouth 3 [place] 00 (three) Medical times Branch daily as needed for Cough. chlorphenir Yes [id number] 4mg Take 1 Univers amine 4 mg 1-13 tablet by ity of tablet 00:00: mouth [place] 00 every 6 Medical (six) Branch hours as needed for Allergies or Runny nose. multivitami Yes [id number] 1{capsu Take 1 Univers n capsule 1-13 le} capsule by ity of 00:00: mouth [place] 00 daily. Medical Branch calcium-mag Yes [id number] Take as Univers nesium-zinc 1-13 directed ity of 333-133-8.3 00:00: for daily [place] mg Tab 00 dose. Medical Branch albuterol Yes [id number] 2{puff} Inhale 2 Univers 90 1-13 Puffs ity of mcg/actuati 00:00: every 4 [place] on inhaler 00 (four) Medical hours as Branch needed for Wheezing or Shortness of Breath. ondansetron Yes [id number] 4mg Take 1 Univers 4 mg 1-13 tablet by ity of disintegrat 00:00: mouth [place] ing tablet 00 every 8 Medica l (eight) Branch hours as needed for Nausea and Vomiting (N/V). benzonatate Yes [id number] 100mg Take 1 Univers 100 mg 1-13 capsule by ity of capsule 00:00: mouth 3 [place] 00 (three) Medical times Branch daily as needed for Cough. chlorphenir Yes [id number] 4mg Take 1 Univers amine 4 mg 1-13 tablet by ity of tablet 00:00: mouth [place] 00 every 6 Medical (six) Branch hours as needed for Allergies or Runny nose. multivitami Yes [id number] 1{capsu Take 1 Univers n capsule 1-13 le} capsule by ity of 00:00: mouth [place] 00 daily. Medical Branch calcium-mag Yes [id number] Take as Univers nesium-zinc 1-13 directed ity of 333-133-8.3 00:00: for daily [place] mg Tab 00 dose. Medical Branch albuterol Yes [id number] 2{puff} Inhale 2 Univers 90 1-13 Puffs ity of mcg/actuati 00:00: every 4 [place] on inhaler 00 (four) Medical hours as Branch needed for Wheezing or Shortness of Breath. ondansetron Yes [id number] 4mg Take 1 Univers 4 mg 1-13 tablet by ity of disintegrat 00:00: mouth [place] ing tablet 00 every 8 Medica l (eight) Branch hours as needed for Nausea and Vomiting (N/V). benzonatate Yes [id number] 100mg Take 1 Univers 100 mg 1-13 capsule by ity of capsule 00:00: mouth 3 [place] 00 (three) Medical times Branch daily as needed for Cough. chlorphenir Yes [id number] 4mg Take 1 Univers amine 4 mg 1-13 tablet by ity of tablet 00:00: mouth [place] 00 every 6 Medical (six) Branch hours as needed for Allergies or Runny nose. multivitami Yes [id number] 1{capsu Take 1 Univers n capsule 1-13 le} capsule by ity of 00:00: mouth [place] 00 daily. Medical Branch calcium-mag Yes [id number] Take as Univers nesium-zinc 1-13 directed ity of 333-133-8.3 00:00: for daily [place] mg Tab 00 dose. Medical Branch albuterol Yes [id number] 2{puff} Inhale 2 Univers 90 1-13 Puffs ity of mcg/actuati 00:00: every 4 [place] on inhaler 00 (four) Medical hours as Branch needed for Wheezing or Shortness of Breath. ondansetron Yes [id number] 4mg Take 1 Univers 4 mg 1-13 tablet by ity of disintegrat 00:00: mouth [place] ing tablet 00 every 8 Medica l (eight) Branch hours as needed for Nausea and Vomiting (N/V). benzonatate Yes [id number] 100mg Take 1 Univers 100 mg 1-13 capsule by ity of capsule 00:00: mouth 3 [place] 00 (three) Medical times Branch daily as needed for Cough. chlorphenir Yes [id number] 4mg Take 1 Univers amine 4 mg 1-13 tablet by ity of tablet 00:00: mouth [place] 00 every 6 Medical (six) Branch hours as needed for Allergies or Runny nose. multivitami Yes [id number] 1{capsu Take 1 Univers n capsule 1-13 le} capsule by ity of 00:00: mouth [place] 00 daily. Medical Branch calcium-mag Yes [id number] Take as Univers nesium-zinc 1-13 directed ity of 333-133-8.3 00:00: for daily [place] mg Tab 00 dose. Medical Branch albuterol Yes [id number] 2{puff} Inhale 2 Univers 90 1-13 Puffs ity of mcg/actuati 00:00: every 4 [place] on inhaler 00 (four) Medical hours as Branch needed for Wheezing or Shortness of Breath. ondansetron Yes [id number] 4mg Take 1 Univers 4 mg 1-13 tablet by ity of disintegrat 00:00: mouth [place] ing tablet 00 every 8 Medica l (eight) Branch hours as needed for Nausea and Vomiting (N/V). vitamin 2020- No [id number] 1{tbl} Take 1 Univers D3-folic 1-15 05- tablet by ity o f acid 5,000 00:00: 05:59 mouth [place] unit- 1 mg 00 :00 daily for Medi inez Tab 30 days. Branch vitamin 2020- No [id number] 1{tbl} Take 1 Univers D3-folic 1-13 - tablet by ity o f acid 5,000 00:00: 05:59 mouth [place] unit- 1 mg 00 :00 daily for Medi inez Tab 30 days. Branch vitamin 2020- No [id number] 1{tbl} Take 1 Univers D3-folic 1-13 -13 tablet by ity o f acid 5,000 00:00: 05:59 mouth [place] unit- 1 mg 00 :00 daily for Medi inez Tab 30 days. Branch traMADOL 2016-0 Yes 50mg Take 1 Tab Uni vers (ULTRAM) 50 2-18 by mouth ity of mg tablet 00:00: every 6 [place] 00 (six) Medical hours as Branch needed for Pain (scale 4-6). Aiden Soto PA-C / Harshil Camilo MD DEYVI# [id number] DPS# [id number] x Lic.# [id number] NPI# [id number] proMETHazin 2016-0 Yes 25mg Take 1 Tab Univers e 2-18 by mouth ity of (PHENERGAN) 00:00: every 6 [place] 25 mg 00 (six) Medical tablet hours as Branch needed for Nausea and Vomiting (N/V). sulfamethox 2016-0 Yes 1{tbl} Take 1 Tab Univers azole-trime 2-18 by mouth ity of thoprim 00:00: every 12 [place] (BACTRIM 00 (twelve) Medical DS) 800-160 hours. Branch mg per tablet traMADOL 2016-0 Yes 50mg Take 1 Tab Uni vers (ULTRAM) 50 2-18 by mouth ity of mg tablet 00:00: every 6 [place] 00 (six) Medical hours as Branch needed for Pain (scale 4-6). Aiden Soto PA-C / Harshil Camilo MD DEYVI# [id number] DPS# [id number] x Lic.# [id number] NPI# [id number] proMETHazin 2016-0 Yes 25mg Take 1 Tab Univers e 2-18 by mouth ity of (PHENERGAN) 00:00: every 6 [place] 25 mg 00 (six) Medical tablet hours as Branch needed for Nausea and Vomiting (N/V). sulfamethox 2016-0 Yes 1{tbl} Take 1 Tab Univers azole-trime 2-18 by mouth ity of thoprim 00:00: every 12 [place] (BACTRIM 00 (twelve) Medical DS) 800-160 hours. Branch mg per tablet traMADOL 2016-0 Yes 50mg Take 1 Tab Uni vers (ULTRAM) 50 2-18 by mouth ity of mg tablet 00:00: every 6 [place] 00 (six) Medical hours as Branch needed for Pain (scale 4-6). Aiden Soto PA-C / Harshil Camilo MD DEYVI# [id number] DPS# [id number] x Lic.# [id number] NPI# [id number] proMETHazin 2016-0 Yes 25mg Take 1 Tab Univers e 2-18 by mouth ity of (PHENERGAN) 00:00: every 6 [place] 25 mg 00 (six) Medical tablet hours as Branch needed for Nausea and Vomiting (N/V). sulfamethox 2016-0 Yes 1{tbl} Take 1 Tab Univers azole-trime 2-18 by mouth ity of thoprim 00:00: every 12 [place] (BACTRIM 00 (twelve) Medical DS) 800-160 hours. Branch mg per tablet sulfamethox 2016-0 Yes 1{tbl} Take 1 Tab Univers azole-trime 2-18 by mouth ity of thoprim 00:00: every 12 [place] (BACTRIM 00 (twelve) Medical DS) 800-160 hours. Branch mg per tablet traMADOL 2016-0 Yes 50mg Take 1 Tab Uni vers (ULTRAM) 50 2-18 by mouth ity of mg tablet 00:00: every 6 [place] 00 (six) Medical hours as Branch needed for Pain (scale 4-6). Aiden Soto PA-C / Harshil Camilo MD DEYVI# [id number] DPS# [id number] x Lic.# [id number] NPI# [id number] proMETHazin 2016-0 Yes 25mg Take 1 Tab Univers e 2-18 by mouth ity of (PHENERGAN) 00:00: every 6 [place] 25 mg 00 (six) Medical tablet hours as Branch needed for Nausea and Vomiting (N/V). traMADOL 2016-0 Yes 50mg Take 1 Tab Uni vers (ULTRAM) 50 2-18 by mouth ity of mg tablet 00:00: every 6 [place] 00 (six) Medical hours as Branch needed for Pain (scale 4-6). Aiden Soto PA-C / Harshil Camilo MD DEYVI# [id number] DPS# [id number] x Lic.# [id number] NPI# [id number] sulfamethox 2016-0 Yes 1{tbl} Take 1 Tab Univers azole-trime 2-18 by mouth ity of thoprim 00:00: every 12 [place] (BACTRIM 00 (twelve) Medical DS) 800-160 hours. Branch mg per tablet traMADOL 2016-0 Yes 50mg Take 1 Tab Uni vers (ULTRAM) 50 2-18 by mouth ity of mg tablet 00:00: every 6 [place] 00 (six) Medical hours as Branch needed for Pain (scale 4-6). Aiden Soto PA-C / Harshil Camilo MD DEYVI# [id number] DPS# [id number] x Lic.# [id number] NPI# [id number] proMETHazin 2016-0 Yes 25mg Take 1 Tab Univers e 2-18 by mouth ity of (PHENERGAN) 00:00: every 6 [place] 25 mg 00 (six) Medical tablet hours as Branch needed for Nausea and Vomiting (N/V). proMETHazin 2016-0 Yes 25mg Take 1 Tab Univers e 2-18 by mouth ity of (PHENERGAN) 00:00: every 6 [place] 25 mg 00 (six) Medical tablet hours as Branch needed for Nausea and Vomiting (N/V). sulfamethox 2016-0 Yes 1{tbl} Take 1 Tab Univers azole-trime 2-18 by mouth ity of thoprim 00:00: every 12 [place] (BACTRIM 00 (twelve) Medical DS) 800-160 hours. Branch mg per tablet traMADOL 2016-0 Yes 50mg Take 1 Tab Uni vers (ULTRAM) 50 2-18 by mouth ity of mg tablet 00:00: every 6 [place] 00 (six) Medical hours as Branch needed for Pain (scale 4-6). Aiden Soto PA-C / Harshil Camilo MD DEYVI# [id number] DPS# [id number] x Lic.# [id number] NPI# [id number] proMETHazin 2016-0 Yes 25mg Take 1 Tab Univers e 2-18 by mouth ity of (PHENERGAN) 00:00: every 6 [place] 25 mg 00 (six) Medical tablet hours as Branch needed for Nausea and Vomiting (N/V). sulfamethox 2016-0 Yes 1{tbl} Take 1 Tab Univers azole-trime 2-18 by mouth ity of thoprim 00:00: every 12 [place] (BACTRIM 00 (twelve) Medical DS) 800-160 hours. Branch mg per tablet Vital Signs Vital Name Observation Time Observation Value Comments Source Systolic blood 2020-04-14 14:37:00 140 mm[Hg] Univer sity of pressure [facility] Diastolic blood 2020-04-14 14:37:00 72 mm[Hg] Unive rsity of pressure [facility] Heart rate 2020-04-14 14:37:00 79 /min [facility] Body temperature 2020-04-14 14:37:00 37.5 [facility] Respiratory rate 2020-04-14 14:37:00 14 /min [facility] Body height 2020-04-14 14:37:00 180.3 cm [facility] Body weight 2020-04-14 14:37:00 73.029 kg [facility] BMI 2020-04-14 14:37:00 22.45 kg/m2 [facility] Oxygen saturation in 2020-04-14 14:37:00 98 /min [facility] Arterial blood by [facility] Pulse oximetry Branch Procedures Procedure Date / Time Performed Performing Clinician Sour e URINALYSIS 2020-04-14 15:11:00 DaoRebel roman [place] o f [facility] COVID-19 (ID NOW RAPID 2020-04-14 15:11:[address] [facility] TESTING) [facility] NOTICE OF PRIVACY 2020-04-14 14:26:27 Doctor Unassigned, No [facility] PRACTICES Name [facility] Branch CONSENT/REFUSAL FOR 2020-04-14 14:26:16 [facility], [facility] AND Name Medical Branch TREATMENT Encounters Start End Encounter Admission Attending Care Care Encounter Source Date/Time Date/Time Type Type Clinicians Facility Department ID 2021-01-29 Emergency [place] [id number] Univers 16:57:35 ity [facility] 2021-04-10 2021-04-10 Emergency X [facility] ERT [id number] Univers 08:57:00 10:10:00 CASSANDRA ity [facility] 2021-04-10 2021-04-10 Emergency [facility] [id number] Univers 08:57:00 10:10:00 Cassandra REED 350.1.13.10 ity of [place] 4.2.7.2.686 [place] [facility] [id number] [address] 2020-04-26 2020-04-26 Laboratory Lab, Adc Fam Pob I [facility] [id number] Univers 18:12:12 18:32:12 Only Jason, [facility] 350.1.13.10 ity of [place] 4.2.7.2.686 [place] Professio [phone] [address] Office [address] 2020-04-26 2020-04-26 Outpatient R JASON [place] [id number] Univers 18:20:00 18:20:00 RANSHANNON y [facility] 2020-04-25 2020-04-25 Outpatient R JOHANNA [place] [id number] Univers 09:20:00 09:20:00 TORSTEN [facility] 2020-04-14 2020-04-14 Emergency [facility] [id number] Univers 08:38:00 10:13:00 Rebel Luis M 350.1.13.10 i ty of [place] 4.2.7.2.686 [facility] [id number] [address] 2020-04-14 2020-04-14 Orders Doctor LIVAN [id number] Univers 00:00:00 00:00:00 Only Unassigned, LEONARD 350.1.13.10 ity of [place] [facility] 4.2.7.2.686 [place] as [id number] [address] 2019-10-11 2019-10-11 Laboratory Lab, [facility] Fam Pob I [facility] 1.2. [id number] Univers 09:42:04 10:02:04 Only [facility] 350.1.13.10 ity of [place] 4.2.7.2.686 [place] as Professio [id number] [facility] nal [address] [place] [address] Office [address] 2019-10-11 2019-10-11 Outpatient R JASON, [place] [id number] Univers 09:40:00 09:40:00 AMANDA nguyen of [facility] 2019-10-11 2019-10-11 Letter Doctor LIVAN [id number] 00:00:00 00:00:00 (Out) Unassigned, LEONARD 350.1.13.10 ity of [place] [facility] 4.2.7.2.686 [place] [id number] [address] Results Test Description Test Time Test Comments Results Result Comments Source URINALYSIS 2020-04-14 15:44:00 Test Item Value Reference Range Interpretation Comme nts APPEARANCE (test code = Clear Clear 6719646323) COLOR (test code = 3724134487) Yellow Yellow PH (test code = 3700883936) 4.8-8.0 SP GRAVITY (test code = 1.003-1.030 2693438073) GLU U QUAL (test code = Normal Normal 2642980472) BLOOD (test code = 3607407602) Negative Negative KETONES (test code = 8972347263) 80 mg/dL Negative A PROTEIN (test code = 2887-8) Negative Negative UROBILIN (test code = 2.0 mg/dL Normal A 3896493580) BILIRUBIN (test code = Negative Negative 8518725993) NITRITE (test code = 2134365909) Negative Negative LEUK EDWIN (test code = Negative Negative 6573065874) RBC/HPF (test code = 8478663759) See_Comment [Automated message] The system which ge nerated this result transmit lizet reference range: 0 - 3 HP F. The reference range was not used to interpret th is result as normal/abnormal . WBC/HPF (test code = 1769011711) See_Comment [Automated message] The system which ge nerated this result transmit lizet reference range: 0 - 5 HP F. The reference range was not used to interpret th is result as normal/abnormal . BACTERIA (test code = Negative Negative 4457892548) MUCOUS (test code = 8649134496) Slight Negative LPF A Lab Interpretation (test code = Abnormal 66925-1) [facility]2020-04-14 15:30:00 Test Item Value Reference Range Interpretation Comments SARS-CoV-2 Rapid ID NOW Positive Not Detected A (test code = 15725-0) SRIDHAR (test code = SRIDHAR) ID NOW COVID-19 Assay is an isothermal nucleic acid amplification test intended for the qualitative detection of nucleic acid from SARS-CoV-2 viral RNA in nasopharyngeal (BOTTOM TURNER) specimens. It is used under Emergency Use Authorization (EUA) by FDA. The limit of detection (LOD) of the assay is 125 Genome Equivalents/mL. A positive result is indicative of the presence of SARS-CoV-2 RNA. ?Clinical correlation with patient history and other diagnostic information is necessary to determine patient infection status. A negative (Not Detected) result does not preclude SARS-CoV-2 infection. In patients with clinical symptoms and other tests that are consistent with SARS-CoV-2 infection, negative results should be treated as presumptive negative and a new specimen should be tested with alternative PCR molecular test. Invalid: Please collect a new specimen for repeat patient testing if clinically indicated. Lab Interpretation Abnormal (test code = 77775-6) [facility]
--- NOTE | 2022-03-29 16:48 | EDPHYS ---
Physician Documentation [facility] Name: Yunier Mejias Age: 26 yrs Sex: Male : 1995 Arrival Date: 03/29/2022 Time: 13:11 Bed Treatment Private MD: ED Physician Chadwick Caal HPI: 03/29 13:29 This 26 yrs old Male presents to ER via Ambulatory with complaints of Knee Pain - snw infection. 13:29 The patient presents with tenderness. The complaints affect the right knee. 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 Onset: The symptoms/episode began/occurred suddenly. Modifying factors: The symptoms are alleviated by nothing. the symptoms are aggravated by bending knee. Associated signs and symptoms: Pertinent positives:. Associated signs and symptoms: Pertinent positives: tenderness increasing and ROM feels tight. Severity of symptoms: At their worst the symptoms were mild, moderate. The patient has experienced a previous episode. Historical: - Allergies: 13:22 PENICILLINS; ss - Home Meds: 13:22 None [Active]; ss - PMHx: 13:22 None; ss - PSHx: 13:22 None; ss - Immunization history:: Client reports having NOT received the Covid vaccine. - Social history:: Smoking status: Patient/guardian denies using tobacco, Stopped _ months ago 2. ROS: 13:28 Constitutional: Negative for fever, chills, and weight loss, Eyes: Negative for injury, snw pain, redness, and discharge, ENT: Negative for injury, pain, and discharge, Neck: Negative for injury, pain, and swelling, Cardiovascular: Negative for chest pain, palpitations, and edema, Respiratory: Negative for shortness of breath, cough, wheezing, and pleuritic chest pain, Abdomen/GI: Negative for abdominal pain, nausea, vomiting, diarrhea, and constipation, Back: Negative for injury and pain, : Negative for injury, bleeding, discharge, and swelling, Neuro: Negative for headache, weakness, numbness, tingling, and seizure, Psych: Negative for depression, anxiety, suicide ideation, homicidal ideation, and hallucinations. 13:28 MS/extremity: Positive for pain, of the right knee. 13:28 Skin: Positive for abscess, of the right knee. Exam: 13:25 Constitutional: This is a well developed, well nourished patient who is awake, alert, snw and in no acute distress. Head/Face: Normocephalic, atraumatic. Eyes: Pupils equal round and reactive to light, extra-ocular motions intact. Lids and lashes normal. Conjunctiva and sclera are non-icteric and not injected. Cornea within normal limits. Periorbital areas with no swelling, redness, or edema. ENT: Nares patent. No nasal discharge, no septal abnormalities noted. Tympanic membranes are normal and external auditory canals are clear. Oropharynx with no redness, swelling, or masses, exudates, or evidence of obstruction, uvula midline. Mucous membranes moist. Neck: Trachea midline, no thyromegaly or masses palpated, and no cervical lymphadenopathy. Supple, full range of motion without nuchal rigidity, or vertebral point tenderness. No Meningismus. Chest/axilla: Normal chest wall appearance and motion. Nontender with no deformity. No lesions are appreciated. Cardiovascular: Regular rate and rhythm with a normal S1 and S2. No gallops, murmurs, or rubs. Normal PMI, no JVD. No pulse deficits. Respiratory: Lungs have equal breath sounds bilaterally, clear to auscultation and percussion. No rales, rhonchi or wheezes noted. No increased work of breathing, no retractions or nasal flaring. Abdomen/GI: Soft, non-tender, with normal bowel sounds. No distension or tympany. No guarding or rebound. No evidence of tenderness throughout. Back: No spinal tenderness. No costovertebral tenderness. Full range of motion. Neuro: Awake and alert, GCS 15, oriented to person, place, time, and situation. Cranial nerves II-XII grossly intact. Motor strength 5/5 in all extremities. Sensory grossly intact. Cerebellar exam normal. Normal gait. Psych: Awake, alert, with orientation to person, place and time. Behavior, mood, and affect are within normal limits. 13:25 Skin: Appearance: normal except for affected area, abscess, that is small, approximately 2 cm(s), of the right knee, mild erythema to area over right lower knee. Positive ROM. no fever. Vital Signs: 13:22 BP 142 / 72; Pulse 91; Resp 16; Temp 98.7(TE); Pulse Ox 99% on R/A; Weight 77.56 kg; ss Height 5 ft. 11 in. (180.34 cm); 13:22 Body Mass Index 23.85 (77.56 kg, 180.34 cm) ss Procedures: 16:45 I \T\ D: Incision and drainage was performed for an abscess of the right Prepped with snw hibiclens. Anesthetized with nothing. Incised with 18g needle. Drained moderate amount purulent fluid. Dressing: telfa, the patient tolerated the procedure well. MDM: 13:25 Patient medically screened. snw 16:48 Data reviewed: vital signs, nurses notes. Data interpreted: Pulse oximetry: on room air snw is 99 %. Interpretation: normal. Counseling: I had a detailed discussion with the patient and/or guardian regarding: the historical points, exam findings, and any diagnostic results supporting the discharge/admit diagnosis, the need for outpatient follow up, to return to the emergency department if symptoms worsen or persist or if there are any questions or concerns that arise at home. Special discussion: Based on the history and exam findings, there is no indication for further emergent testing or inpatient evaluation. I discussed with the patient/guardian the need to see the primary care provider for further evaluation of the symptoms. 03/29 16:48 Order name: Bishnu wrap-joint; Complete Time: 17:16 snw Administered Medications: 17:27 Not Given (Patient Refused): Ketorolac 60 mg IM once ph 17:27 Drug: Mupirocin Ointment 2 % 1 application Route: Topical; Site: affected area; ph 18:00 Follow up: Response: No adverse reaction ph 17:27 Drug: Doxycycline 100 mg Route: PO; ph 18:00 Follow up: Response: No adverse reaction ph Disposition: 18:01 Co-signature as Attending Physician, Chadwick Caal MD I agree with the assessment and rt plan of care. Disposition Summary: 03/29/22 16:47 Discharge Ordered Location: Home snw Condition: Stable snw Diagnosis - Cutaneous abscess, unspecified snw Followup: snw - With: Emergency Department - When: As needed - Reason: Worsening of condition Followup: snw - With: Private Physician - When: 2 - 3 days - Reason: Recheck today's complaints, Continuance of care, Re-evaluation by your physician Discharge Instructions: - Discharge Summary Sheet snw - Skin Abscess snw - Incision and Drainage snw - Heat Therapy snw Forms: - Medication Reconciliation Form snw - Thank You Letter snw - Antibiotic Education snw - Prescription Opioid Use snw - Work release form snw Prescriptions: - mupirocin 2 % Topical ointment - apply 1 application by TOPICAL route 3 times per day; 50 gram; Refills: 0, snw Product Selection Permitted - Mobic 7.5 mg Oral Tablet - take 1 tablet by ORAL route once daily take with food; 20 tablet; Refills: 0, snw Product Selection Permitted - Doxycycline Hyclate 100 mg Oral Tablet - take 1 tablet by ORAL route every 12 hours; 20 tablet; Refills: 0, Product snw Selection Permitted Signatures: Sofie Sales FNP-Rj FINANCIAL BUSINESS ANALYST-Melaniw Nazanin Barboza, GLENN RN Ashley Amador RN RN Chadwick Caal MD MD rt
--- NOTE | 2022-03-29 16:48 | ER ---
Nurse's Notes [facility] Name: Yunier Mejias Age: 26 yrs Sex: Male : 1995 Arrival Date: 03/29/2022 Time: 13:11 Bed Treatment Private MD: Diagnosis: Cutaneous abscess, unspecified Presentation: 03/29 13:22 Chief complaint: Patient states: "I think I have staph in my R knee." Pt reports ss redness and swelling that began 3 days ago. Coronavirus screen: Client denies travel out of the [place] in the last 14 days. Ebola Screen: Patient denies exposure to infectious person. Patient denies travel to an Ebola-affected area in the 21 days before illness onset. Initial Sepsis Screen: Does the patient meet any 2 criteria? No. Patient's initial sepsis screen is negative. Does the patient have a suspected source of infection? No. Patient's initial sepsis screen is negative. Risk Assessment: Do you want to hurt yourself or someone else? Patient reports no desire to harm self or others. Onset of symptoms was March 26, 2022. 13:22 Method Of Arrival: Ambulatory ss 13:22 Acuity: MIGUEL 4 ss Historical: - Allergies: 13:22 PENICILLINS; ss - Home Meds: 13:22 None [Active]; ss - PMHx: 13:22 None; ss - PSHx: 13:22 None; ss - Immunization history:: Client reports having NOT received the Covid vaccine. - Social history:: Smoking status: Patient/guardian denies using tobacco, Stopped _ months ago 2. Screenin:16 [facility] ED Fall Risk Assessment (Adult) History of falling in the last 3 months, ph including since admission No falls in past 3 months (0 pts) Confusion or Disorientation No (0 pts) Intoxicated or Sedated No (0 pts) Impaired Gait No (0 pts) Mobility Assist Device Used No (0 pt) Altered Elimination No (0 pt) Score/Fall Risk Level 0 - 2 = Low Risk Oriented to surroundings, Maintained a safe environment. Abuse screen: Denies threats or abuse. Denies injuries from another. Nutritional screening: No deficits noted. Tuberculosis screening: No symptoms or risk factors identified. Assessment: 17:00 General: Appears in no apparent distress. comfortable, well groomed, Behavior is calm, ph cooperative, appropriate for age, Denies fever. Pain: Complains of pain in right knee. Neuro: Level of Consciousness is awake, alert, obeys commands, Oriented to person, place, time, situation. Cardiovascular: Capillary refill < 3 seconds in bilateral fingers Patient's skin is warm and dry. Respiratory: Airway is patent Respiratory effort is even, unlabored. Derm: Skin is healthy with good turgor, Skin is pink, warm \\T\\ dry. Abscess located on posterior aspect of right knee is dime sized, has no drainage, is red, is raised. Vital Signs: 13:22 BP 142 / 72; Pulse 91; Resp 16; Temp 98.7(TE); Pulse Ox 99% on R/A; Weight 77.56 kg; ss Height 5 ft. 11 in. (180.34 cm); 13:22 Body Mass Index 23.85 (77.56 kg, 180.34 cm) ED Course: 13:11 Patient arrived in ED. am2 13:12 Sofie Sales [facility]C [facility] snw 13:12 Chadwick Caal MD is Attending Physician. snw 13:22 Arm band placed on right wrist. ss 13:24 Triage completed. ss 16:38 Ashley Amador, RN is Primary Nurse. ph 17:16 Patient has correct armband on for positive identification. Call light in reach. Side ph rails up X 1. 17:27 No provider procedures requiring assistance completed. Patient did not have IV access ph during this emergency room visit. Administered Medications: 17:27 Not Given (Patient Refused): Ketorolac 60 mg IM once ph 17:27 Drug: Mupirocin Ointment 2 % 1 application Route: Topical; Site: affected area; ph 18:00 Follow up: Response: No adverse reaction ph 17:27 Drug: Doxycycline 100 mg Route: PO; ph 18:00 Follow up: Response: No adverse reaction ph Medication: 17:28 VIS not applicable for this client. ph Outcome: 16:47 Discharge ordered by . snw 17:27 Discharged to home ambulatory. ph 17:27 Condition: good 17:27 Discharge instructions given to patient, Instructed on discharge instructions, follow up and referral plans. medication usage, Demonstrated understanding of instructions, follow-up care, medications, Prescriptions given X 3. 17:28 Patient left the ED. ph Signatures: Sofie Sales, WO[employer]EL [employer] RUBBER-C WO[employer] HEEL FLAP RUBBER-Csnw Nazanin Barboza, RN RN ss Ashley Amador RN RN Ester Garcia
[2022-03-29] MEDS ORDERED: KETOROLAC 30 MG/ML INJ ONE (17:24)
[2022-03-29] MEDS ORDERED: DOXYCYCLINE 100 MG CAP PO ONE (17:24)
[2022-03-29] MEDS ORDERED: MUPIROCIN 2% OINT 22GM TUBE TOP ONE (17:24)
[2022-03-29 17:32] VITALS: BP 142/72; TEMP 98.7; O2SAT 99
== END 2022-03-29 17:28 | disposition home or self-care (01) ==
LOC: ER 13:04
PROC: 0H9KXZZ Drainage of Right Lower Leg Skin, External Approach (ICD-10-PCS; principal; 2022-03-29)
DX: L02.415 Cutaneous abscess of right lower limb (principal)

== ENCOUNTER 2022-11-15 12:43 | Emergency (ER) | payer OTHER, SELFPAY ==
--- OUTSIDE RECORDS SUMMARY | 2022-11-15 12:51 | XMS REPORT | Continuity of Care Document ---
:1995 Author Organization [facility] t Address [address] [place] [address] [place] [id number] Care Team Providers Name Role Phone PCP, PATIENT DOES NOT HAVE A Primary Care Physician Unavaila CASSANDRA Ojeda Attending Clinician Unavailable Cassandra Em MD Attending Clinician Lab, Adc Fam Pob I Attending Clinician Unavailable Amanda Dodge Attending Clinician AMANDA DAILEY Attending Clinician Unavailable TORSTEN SPENCER Attending Clinician Unavailable Rebel Dao DO Attending Clinician Doctor Unassigned, [place] Attending Clinician Unavailable Payers Payer Name Policy Type Policy Number Effective Date Expiration Date [facility] [id number] 2019 00:00:00 [facility] [id number] 2021 00:00:00 Problems This patient has no known problems. Allergies, Adverse Reactions, Alerts Allergy Allergy Status Severity Reaction(s) Onset Inactive Treating Comm ents Source Name Type Date Date Clinician Penicill Propensi Active Hives Univer s ins ty to 1-13 ity of adverse 00:00: [place] reaction 00 Medical s Branch PENICILL Drug Active Hives Univers INS Class 1-13 ity of 00:00: [place] 00 Medical Branch NO KNOWN Drug Active Univers ALLERGIE Class ity of S [facility] Social History Social Habit Start Date Stop Date Quantity Comments Source Exposure to Not sure [facility] SARS-CoV-2 (event) Medica l Branch Sex Assigned At [birth year] [facility] 00:00:00 00:00:00 Medical Branch Smoking Status Start Date Stop Date Source Unknown if ever smoked [facility] Medications Ordered Filled Start Stop Current Ordering Indication Dosage Frequency Signature Comments Components Source Medication Medication Date Date Medication? Clinician (SIG) Name Name benzonatate Yes [id number] 100mg Take 1 Univers 100 mg 1-13 capsule by ity of capsule 00:00: mouth 3 [place] 00 (three) Medical times Branch daily as needed for Cough. chlorphenir Yes [id number] 4mg Take 1 Univers amine 4 mg 1-13 tablet by ity of tablet 00:00: mouth [place] 00 every 6 Medical (six) Branch hours as needed for Allergies or Runny nose. multivitami Yes [id number] 1{capsu Take 1 Univers n capsule 1-13 le} capsule by ity of 00:00: mouth [place] 00 daily. Medical Branch calcium-mag Yes [id number] Take as Univers nesium-zinc 1-13 directed ity of 333-133-8.3 00:00: for daily [place] mg Tab 00 dose. Medical Branch albuterol Yes [id number] 2{puff} Inhale 2 Univers 90 1-13 Puffs ity of mcg/actuati 00:00: every 4 [place] as on inhaler 00 (four) Medical hours as Branch needed for Wheezing or Shortness of Breath. ondansetron Yes [id number] 4mg Take 1 Univers 4 mg 1-13 tablet by ity of disintegrat 00:00: mouth [place] ing tablet 00 every 8 Medica l (eight) Branch hours as needed for Nausea and Vomiting (N/V). benzonatate Yes [id number] 100mg Take 1 Univers 100 mg 1-13 capsule by ity of capsule 00:00: mouth 3 [place] 00 (three) Medical times Branch daily as needed for Cough. chlorphenir Yes [id number] 4mg Take 1 Univers amine 4 mg 1-13 tablet by ity of tablet 00:00: mouth [place] 00 every 6 Medical (six) Branch hours as needed for Allergies or Runny nose. multivitami Yes [id number] 1{capsu Take 1 Univers n capsule 1-13 le} capsule by ity of 00:00: mouth [place] 00 daily. Medical Branch calcium-mag Yes [id number] Take as Univers nesium-zinc 1-13 directed ity of 333-133-8.3 00:00: for daily [place] mg Tab 00 dose. Medical Branch albuterol Yes [id number] 2{puff} Inhale 2 Univers 90 1-13 Puffs ity of mcg/actuati 00:00: every 4 [place] on inhaler 00 (four) Medical hours as Branch needed for Wheezing or Shortness of Breath. ondansetron Yes [id number] 4mg Take 1 Univers 4 mg 1-13 tablet by ity of disintegrat 00:00: mouth [place] ing tablet 00 every 8 Medica l (eight) Branch hours as needed for Nausea and Vomiting (N/V). benzonatate Yes [id number] 100mg Take 1 Univers 100 mg 1-13 capsule by ity of capsule 00:00: mouth 3 [place] 00 (three) Medical times Branch daily as needed for Cough. chlorphenir Yes [id number] 4mg Take 1 Univers amine 4 mg 1-13 tablet by ity of tablet 00:00: mouth [place] 00 every 6 Medical (six) Branch hours as needed for Allergies or Runny nose. multivitami Yes [id number] 1{capsu Take 1 Univers n capsule 1-13 le} capsule by ity of 00:00: mouth [place] 00 daily. Medical Branch calcium-mag Yes [id number] Take as Univers nesium-zinc 1-13 directed ity of 333-133-8.3 00:00: for daily [place] mg Tab 00 dose. Medical Branch albuterol Yes [id number] 2{puff} Inhale 2 Univers 90 1-13 Puffs ity of mcg/actuati 00:00: every 4 [place] on inhaler 00 (four) Medical hours as Branch needed for Wheezing or Shortness of Breath. ondansetron Yes [id number] 4mg Take 1 Univers 4 mg 1-13 tablet by ity of disintegrat 00:00: mouth [place] ing tablet 00 every 8 Medica l (eight) Branch hours as needed for Nausea and Vomiting (N/V). benzonatate Yes [id number] 100mg Take 1 Univers 100 mg 1-13 capsule by ity of capsule 00:00: mouth 3 [place] 00 (three) Medical times Branch daily as needed for Cough. chlorphenir Yes [id number] 4mg Take 1 Univers amine 4 mg 1-13 tablet by ity of tablet 00:00: mouth [place] 00 every 6 Medical (six) Branch hours as needed for Allergies or Runny nose. multivitami Yes [id number] 1{capsu Take 1 Univers n capsule 1-13 le} capsule by ity of 00:00: mouth [place] 00 daily. Medical Branch calcium-mag Yes [id number] Take as Univers nesium-zinc 1-13 directed ity of 333-133-8.3 00:00: for daily [place] mg Tab 00 dose. Medical Branch albuterol Yes [id number] 2{puff} Inhale 2 Univers 90 1-13 Puffs ity of mcg/actuati 00:00: every 4 [place] on inhaler 00 (four) Medical hours as Branch needed for Wheezing or Shortness of Breath. ondansetron Yes [id number] 4mg Take 1 Univers 4 mg 1-13 tablet by ity of disintegrat 00:00: mouth [place] ing tablet 00 every 8 Medica l (eight) Branch hours as needed for Nausea and Vomiting (N/V). vitamin 2020- No [id number] 1{tbl} Take 1 Univers D3-folic -15 05- tablet by ity o f acid 5,000 00:00: 05:59 mouth [place] unit- 1 mg 00 :00 daily for Medi inez Tab 30 days. Branch vitamin 2020- No [id number] 1{tbl} Take 1 Univers D3-folic 1-13 - tablet by ity o f acid 5,000 00:00: 05:59 mouth [place] unit- 1 mg 00 :00 daily for Medi inez Tab 30 days. Branch vitamin 2020- No [id number] 1{tbl} Take 1 Univers D3-folic 1-13 - [...] Soto PA-C / Harshil Camilo MD DEYVI# [id number] DPS# [id number] x Lic.# [id number] NPI# [id number] proMETHazin 2016-0 Yes 25mg Take 1 Tab Univers e 2-18 by mouth ity of (PHENERGAN) 00:00: every 6 [place] as 25 mg 00 (six) Medical tablet hours as Branch needed for Nausea and Vomiting (N/V). sulfamethox 2016-0 Yes 1{tbl} Take 1 Tab Univers azole-trime 2-18 by mouth ity of thoprim 00:00: every 12 [place] (BACTRIM 00 (twelve) Medical DS) 800-160 hours. Branch mg per tablet traMADOL 2016-0 Yes 50mg Take 1 Tab Uni vers (ULTRAM) 50 2-18 by mouth ity of mg tablet 00:00: every 6 [place] 00 (six) Medical hours as Branch needed for Pain (scale 4-6). Aiden Soto PA-C / Harshil Camilo MD DEYVI# [id number] DPS# [id number] x Lic.# [id number] NPI# [id number] proMETHazin 2016-0 Yes 25mg Take 1 Tab [...] Soto PA-C / Harshil Camilo MD DEYVI# [id number] DPS# [id number] x Lic.# [id number] NPI# [id number] proMETHazin 2016-0 Yes 25mg Take 1 Tab [...] Soto PA-C / Harshil Camilo MD DEYVI# [id number] DPS# [id number] x Lic.# [id number] NPI# [id number] proMETHazin 2016-0 Yes 25mg Take 1 Tab [...] S[place] PA-C / Harshil Camilo MD DEYVI# [id number] DPS# [id number] x Lic.# [id number] NPI# [id number] sulfamethox 2016-0 Yes 1{tbl} Take 1 Tab [...] S[place] PA-C / Harshil Camilo MD DEYVI# [id number] DPS# [id number] x Lic.# [id number] NPI# [id number] proMETHazin 2016-0 Yes 25mg Take 1 Tab [...] [place] PA-C / Harshil Camilo MD DEYVI# [id number] DPS# [id number] x Lic.# [id number] NPI# [id number] proMETHazin 2016-0 Yes 25mg Take 1 Tab [...] 14:37:00 140 mm[Hg] Univer sity of pressure [facility] Diastolic blood 2020-04-14 14:37:00 72 mm[Hg] Unive rsity of pressure [facility] Heart rate 2020-04-14 14:37:00 79 /min [facility] Body temperature 2020-04-14 14:37:00 37.5 [facility] Respiratory rate 2020-04-14 14:37:00 14 /[facility] Body height 2020-04-14 14:37:00 180.3 cm [facility] Body weight 2020-04-14 14:37:00 73.029 kg [facility] BMI 2020-04-14 14:37:00 22.45 kg/m2 [facility] Oxygen saturation in 2020-04-14 14:37:00 98 /min [facility] Arterial blood by [facility] Pulse oximetry Branch Procedures Procedure Date / Time Performed Performing Clinician Sour e URINALYSIS 2020-04-14 15:11:00 Rebel Dao o f [facility] COVID-19 (ID NOW RAPID 2020-04-14 15:11:00 [facility]bel Dao [facility] Medical Branch NOTICE OF PRIVACY 2020-04-14 14:26:27 Doctor Unassigned, No [facility] PRACTICES Name Medical Branch CONSENT/REFUSAL FOR 2020-04-14 14:26:16 Doctor [facility]igned, [facility] Name Medical Branch TREATMENT Encounters Start End Encounter Admission Attending Care Care Encounter Source Date/Time Date/Time Type Type Clinicians Facility Department ID 2021-01-29 Emergency [facility] [id number] [facility] 2021-04-10 Emergency [facility] E[facility] [id number] Univers 08:57:00 10:10:[facility]-04-10 2021-04-10 [facility] [id number] Univers 08:57:00 10:10:00 Cassandra ASENCIO [id number] ity of [facility] 4.2.7.2.686 [id number] [address] 2020-04-26 2020-04-26 Laboratory Lab, Adc Fam Pob I [facility] [id number]. [id number] Univers 18:12:12 18:32:12 Only Ebrahim, [facility] [id number] ity of [place] 4.2.7.2.686 [place] as Professio [phone] Al dical nal [address] 2020-04-26 2020-04-26 Outpatient R ASIM [facility] [id number] Univers 18:20:00 18:20:00 RANIA ity [facility] 2020-04-25 2020-04-25 Outpatient R JOHANNA [facility] [id number] Univers 09:20:00 09:20:00 [facility] 2020-04-14 2020-04-14 Emergency [facility] [id number] Univers 08:38:00 10:13:00 Rebel Asencio 350.1.13.10 i ty of [place] 4.2.7.2.686 [facility] [id number] [address] 2020-04-14 2020-04-14 Orders Doctor LIVAN [id number] Univers 00:00:00 00:00:00 Only Unassigned, LEONARD [id number] ity of [place] [facility] 4.2.7.2.686 [place] as [phone] [facility] [address] 2019-10-11 2019-10-11 Laboratory Lab, Adc Fam Pob I [facility] 1.2. [id number] Univers 09:42:04 10:02:04 Only Ebhim, [facility] 350.1.13.10 ity of [place] 4.2.7.2.686 [place] Professio [id number] Al dical nal [address] 2019-10-11 2019-10-11 Outpatient R ASIM, [facility] [id number] Univers 09:40:00 09:40:00 AMANDA itannamaria of [facility] 2019-10-11 2019-10-11 Letter Doctor LIVAN [id number] 00:00:00 00:00:00 (Out) Unassigned, LEONARD 350.1.13.10 ity of [place] [facility] 4.2.7.2.686 [place] as [id number] [address] Results Test Description Test Time Test Comments Results Result Comments Source URINALYSIS 2020-04-14 15:44:00 Test Item Value Reference Range Interpretation Comme nts APPEARANCE (test code = Clear Clear 9102634234) COLOR (test code = 7448408481) Yellow Yellow PH (test code = 9009166177) 4.8-8.0 SP GRAVITY (test code = 1.003-1.030 0395118625) GLU U QUAL (test code = Normal Normal 0060179670) BLOOD (test code = 5654925093) Negative Negative KETONES (test code = 1000506198) 80 mg/dL Negative A PROTEIN (test code = 2887-8) Negative Negative UROBILIN (test code = 2.0 mg/dL Normal A 4037543577) BILIRUBIN (test code = Negative Negative 8705423305) NITRITE (test code = 1232665935) Negative Negative LEUK EDWIN (test code = Negative Negative 6130275549) RBC/HPF (test code = 9775684533) See_Comment [Automated message] The system which ge nerated this result transmit lizet reference range: 0 - 3 HP F. The reference range was not used to interpret th is result as normal/abnormal . WBC/HPF (test code = 9286046100) See_Comment [Automated message] The system which ge nerated this result transmit lizet reference range: 0 - 5 HP F. The reference range was not used to interpret th is result as normal/abnormal . BACTERIA (test code = Negative Negative 4515081817) MUCOUS (test code = 8874055338) Slight Negative LPF A Lab Interpretation (test code = Abnormal 77717-4) [facility]ID [facility]2020-04-14 15:30:00 Test Item Value Reference Range Interpretation Comments SARS-CoV-2 Rapid ID NOW Positive Not Detected A (test code = 50313-0) SRIDHAR (test code = SRIDHAR) ID NOW COVID-19 Assay is an isothermal nucleic acid amplification test intended for the qualitative detection of nucleic acid from SARS-CoV-2 viral RNA in nasopharyngeal (INSECTICIDE SUPERVISOR) specimens. It is used under Emergency Use [...] indicated. Lab Interpretation Abnormal (test code = 11995-4) [facility]
[2022-11-15 13:46] LABS: SARS-CoV-2 Antigen Rapid Res Negative (Negative)
--- NOTE | 2022-11-15 14:10 | ER ---
Nurse's Notes [facility] Name: Yunier Mejias Age: 26 yrs Sex: Male : 1995 Arrival Date: 11/15/2022 Time: 12:43 Bed DIS3 Private MD: Diagnosis: COVID-19, Suspected Presentation: 11/15 13:14 Chief complaint: Patient states: Headache, body aches and cough onset yesterday. Pt cm10 states that he was around someone over the weekend that tested positive for COVID. Coronavirus screen: Vaccine status: Patient reports being unvaccinated. Client denies travel out of the [place] in the last 14 days. Client presents with at least one sign or symptom that may indicate coronavirus-19. Standard/surgical mask placed on the client. Ebola Screen: Patient denies travel to an Ebola-affected area in the 21 days before illness onset. No symptoms or risks identified at this time. Initial Sepsis Screen: Does the patient meet any 2 criteria? No. Patient's initial sepsis screen is negative. Does the patient have a suspected source of infection? No. Patient's initial sepsis screen is negative. Risk Assessment: Do you want to hurt yourself or someone else? Patient reports no desire to harm self or others. Onset of symptoms was November 14, 2022. 13:14 Method Of Arrival: Ambulatory cm10 13:14 Acuity: MIGUEL 4 cm10 Triage Assessment: 13:40 General: Appears in no apparent distress. uncomfortable, Behavior is calm, cooperative, bp appropriate for age. Pain: Denies pain. EENT: Reports nasal congestion. Neuro: No deficits noted. Cardiovascular: No deficits noted. Respiratory: No deficits noted. GI: No signs and/or symptoms were reported involving the gastrointestinal system. : No signs and/or symptoms were reported regarding the genitourinary system. Derm: No deficits noted. Musculoskeletal: No deficits noted. Historical: - Allergies: 13:16 PENICILLINS; cm10 - Home Meds: 13:16 None [Active]; cm10 - PMHx: 13:16 None; cm10 - PSHx: 13:16 None; cm10 - Immunization history:: Adult Immunizations up to date. - Social history:: Smoking status: Reported history of juuling and/or vaping. Screenin:49 [facility] ED Fall Risk Assessment (Adult) History of falling in the last 3 months, bp including since admission No falls in past 3 months (0 pts). Abuse screen: Denies threats or abuse. Denies injuries from another. Nutritional screening: No deficits noted. Tuberculosis screening: No symptoms or risk factors identified. Assessment: 13:40 General: SEE TRIAGE NOTE. bp 14:49 Reassessment: DC HOME AMBULATORY. bp Vital Signs: 13:14 BP 115 / 76; Pulse 77; Resp 16; Temp 98.1(TE); Pulse Ox 100% ; Weight 81.65 kg; Height cm10 5 ft. 11 in. ; Pain 7/10; 13:14 Body Mass Index 25.10 (81.65 kg, 180.34 cm) cm10 13:14 Pain Scale: Adult cm10 ED Course: 12:44 Patient arrived in ED. rg4 12:50 Julieta Wilder PA-C is [facility]. sb4 12:50 Russell Del Castillo MD is Attending Physician. sb4 13:16 Triage completed. cm10 13:17 Arm band placed on Patient placed in waiting room. cm10 13:23 Flu Sent. cm10 13:23 SARS RAPID Sent. cm10 14:48 Mika Ashley, RN is Primary Nurse. bp 14:49 Patient has correct armband on for positive identification. bp 14:49 No provider procedures requiring assistance completed. Patient did not have IV access bp during this emergency room visit. 14:51 Provided Education on: NONE. bp Administered Medications: No medications were administered Medication: 14:49 VIS not applicable for this client. bp Outcome: 14:09 Discharge ordered by . sb4 14:49 Discharged to home ambulatory. bp 14:49 Condition: stable 14:49 Discharge instructions given to patient, Instructed on discharge instructions, follow up and referral plans. Demonstrated understanding of instructions, follow-up care. 14:51 Patient left the ED. bp Signatures: Eliana Parra rg4 Mika Ashley, RN RN bp Julieta Wilder PA-C PA-C sb4 Treasure Solis RN RN cm10
--- NOTE | 2022-11-15 14:11 | EDPHYS ---
Physician Documentation [facility] Name: Yunier Mejias Age: 26 yrs Sex: Male : 1995 Arrival Date: 11/15/2022 Time: 12:43 Bed DIS3 Private MD: ED Physician Russell Del Castillo HPI: 11/15 18:46 This 26 yrs old Male presents to ER via Ambulatory with complaints of Covid Symptoms. sb4 18:46 patient reports headache, cough, sore throat, body aches. he states he was in contact sb4 with a friend this weekend who tested positive for covid a few days ago. patient has not been taking any medications at home to alleviate the symptoms nor has he taken a home test. he has not checked his temperature, unsure if he has been febrile. denies chest pain, shortness of breath, abdominal pain, nausea, vomiting. Historical: - Allergies: 13:16 PENICILLINS; cm10 - Home Meds: 13:16 None [Active]; cm10 - PMHx: 13:16 None; cm10 - PSHx: 13:16 None; cm10 - Immunization history:: Adult Immunizations up to date. - Social history:: Smoking status: Reported history of juuling and/or vaping. ROS: 18:46 Cardiovascular: Negative for chest pain, palpitations, and edema, Abdomen/GI: Negative sb4 for abdominal pain, nausea, vomiting, diarrhea, and constipation. 18:46 Constitutional: Positive for body aches, malaise. 18:46 ENT: Positive for sinus congestion, sore throat. 18:46 Respiratory: Positive for cough, with yellow sputum. 18:46 All other systems are negative. Exam: 18:46 Constitutional: This is a well developed, well nourished patient who is awake, alert, sb4 and in no acute distress. Head/Face: Normocephalic, atraumatic. Eyes: Extra-ocular motions intact. Periorbital areas with no swelling, redness, or edema. ENT: Mucous membranes moist. Cardiovascular: Regular rate and rhythm with a normal S1 and S2. Respiratory: Lungs have equal breath sounds bilaterally, clear to auscultation and percussion. No rales, rhonchi or wheezes noted. No increased work of breathing, no retractions or nasal flaring. Abdomen/GI: Soft, non-tender, no distension. Skin: Warm, dry with normal turgor. Normal color with no rashes, no lesions, and no evidence of cellulitis. MS/ Extremity: Pulses equal, no cyanosis. Neurovascular intact. Full, normal range of motion. Vital Signs: 13:14 BP 115 / 76; Pulse 77; Resp 16; Temp 98.1(TE); Pulse Ox 100% ; Weight 81.65 kg; Height cm10 5 ft. 11 in. ; Pain 7/10; 13:14 Body Mass Index 25.10 (81.65 kg, 180.34 cm) cm10 13:14 Pain Scale: Adult cm10 MDM: 12:50 Patient medically screened. sb4 18:46 Differential diagnosis: viral Infection, bacterial infection, URI, bronchitis. Data sb4 reviewed: vital signs, nurses notes, lab test result(s), and as a result, I will discharge patient. Counseling: I had a detailed discussion with the patient and/or guardian regarding the historical points, exam findings, and any diagnostic results supporting the discharge/admit diagnosis, lab results, to return to the emergency department if symptoms worsen or persist or if there are any questions or concerns that arise at home. ED course: covid and flu negative. diagnosis is likely covid, but testing is too early. instructed patient to treat symptoms like covid with isolation precautions and general treatment. return precautions given. he verbalized understanding. 11/15 13:17 Order name: SARS RAPID; Complete Time: 13:47 sb4 11/15 13:18 Order name: Flu; Complete Time: 13:50 sb4 Administered Medications: No medications were administered Disposition Summary: 11/15/22 14:09 Discharge Ordered Location: Home sb4 Problem: new sb4 Symptoms: are unchanged sb4 Condition: Stable sb4 Diagnosis - COVID-19, Suspected sb4 Followup: sb4 - With: Private Physician - When: As needed - Reason: Recheck today's complaints, Continuance of care, Re-evaluation by your physician Discharge Instructions: - Discharge Summary Sheet sb4 - 10 Things You Can Do to Manage Your COVID-19 Symptoms at Home - [facility] (10/15/2020) sb4 - COVID-19: Quarantine and Isolation - [facility] (06/29/2021) sb4 - COVID-19: What to Do If You Are Sick - [facility] (06/21/2021) sb4 Forms: - Work release form sb4 - Medication Reconciliation Form sb4 - Thank You Letter sb4 - Antibiotic Education sb4 - Prescription Opioid Use sb4 - Patient Portal Instructions sb4 - Leadership Thank You Letter sb4 Signatures: Dispatcher [employer] Julieta Mccarty PA-C PA-C sb4 Treasure Solis RN RN cm10
[2022-11-15 14:59] VITALS: BP 115/76; TEMP 98.1; O2SAT 100
== END 2022-11-15 14:51 | disposition home or self-care (01) ==
LOC: ER 12:43
DX: R51.9 Headache, unspecified (principal); Z20.822 Contact with and (suspected) exposure to COVID-19; Z88.0 Allergy status to penicillin
CPT/HCPCS: 36415; 87804; 87811

== ENCOUNTER → 2023-05-09 | Emergency (ER) | payer SELFPAY ==
--- OUTSIDE RECORDS SUMMARY | 2023-05-09 14:10 | XMS REPORT | Continuity of Care Document ---
Author Name Unknown Address [address] [facility] [address] [place] [address] [facility] Address [address] [facility] [address] [place] [address] Care Team Providers Care Product Safety Compliance Leader Name Role Phone PCP, PATIENT DOES NOT HAVE A Primary Care Physic todd Unavailable EMIL SRIVASTAVA Attending Clinician Unavailable Emil Srivastava MD Attending Clinician [phone] CASSANDRA REID Attending Clinician Unavailable Casasndra Reid MD Attending Clinician [phone] Lab, Adc Fam Pob I Attending Clinician UnavailAmanda Jain Attending Clinician [phone] AMANDA DAILEY Attending Clinician Unavailable TORSTEN SPENCER Attending Clinician Unavailable Rebel Dao DO Attending Clinician [phone] Doctor Unassigned, [place] Attending Clinician U navailable Payers Payer Name Policy Type Policy Number Effective Date Expirati on Date Source SELF-PAY CI [id number] [facility] [employer] [facility] [id number] 2019 00:00:00 [facility] [id number] 2021 00:00:00 Allergies, Adverse Reactions, Alerts Allergy Name Allergy Type Status Severity Reaction(s) Onset Date Inactive Date Treating Clinician Comments Source Penicill ins Propensi ty to adverse reaction s Active Hives 04-14 00:00: 00 [facility] Penicill ins Propensi ty to adverse reaction s Active Hives 04-14 00:00: 00 [facility] PENICILL INS Drug Class Active Hives 04-14 00:00: 00 [facility] NO KNOWN ALLERGIE S Drug Class Active [facility] Social History Social Habit Start Date Stop Date Quantity Comments Source [facility] to SARS-CoV-2 (event) 2021-03-11 00:00:00 2021-04-10 08:44:00 Not sure [facility] Sex Assigned At 1995 00:00:00 1995 00:00:00 [facility] Smoking Status Start Date Stop Date Source Tobacco smoking consumption unknown [facility] Medications Ordered Medication Name Filled Medication Name Start Date Stop Date Current Medication? Ordering Clinician Indication Dosage Frequency Signature (SIG) Comments Components Source benzonatate 100 mg capsule 04-14 00:00: 00 Yes [id number] 100mg Take 1 capsule by mouth 3 (three) times daily as needed for Cough. [facility] chlorphenir amine 4 mg tablet 04-14 00:00: 00 Yes [id number] 4mg Take 1 tablet by mouth every 6 (six) hours as needed for Allergies or Runny nose. [facility] multivitami n capsule 04-14 00:00: 00 Yes [id number] 1{capsu le} Take 1 capsule by mouth daily. [facility] calcium-mag nesium-zinc 333-133-8.3 mg Tab 04-14 00:00: 00 Yes [id number] Take as directed for daily dose. [facility] albuterol 90 mcg/actuati on inhaler 04-14 00:00: 00 Yes [id number] 2{puff} Inhale 2 Puffs every 4 (four) hours as needed for Wheezing or Shortness of Breath. [facility] ondansetron 4 mg disintegrat ing tablet 04-14 00:00: 00 Yes [id number] 4mg Take 1 tablet by mouth every 8 (eight) hours as needed for Nausea and Vomiting (N/V). [facility] benzonatate 100 mg capsule 04-14 00:00: 00 Yes [id number] 100mg Take 1 capsule by mouth 3 (three) times daily as needed for Cough. [facility] chlorphenir amine 4 mg tablet 04-14 00:00: 00 Yes [id number] 4mg Take 1 tablet by mouth every 6 (six) hours as needed for Allergies or Runny nose. [facility] multivitami n capsule 04-14 00:00: 00 Yes [id number] 1{capsu le} Take 1 capsule by mouth daily. [facility] calcium-mag nesium-zinc 333-133-8.3 mg Tab 04-14 00:00: 00 Yes [id number] Take as directed for daily dose. [facility] albuterol 90 mcg/actuati on inhaler 04-14 00:00: 00 Yes [id number] 2{puff} Inhale 2 Puffs every 4 (four) hours as needed for Wheezing or Shortness of Breath. [facility] ondansetron 4 mg disintegrat ing tablet 04-14 00:00: 00 Yes [id number] 4mg Take 1 tablet by mouth every 8 (eight) hours as needed for Nausea and Vomiting (N/V). [facility] benzonatate 100 mg capsule 04-14 00:00: 00 Yes [id number] 100mg Take 1 capsule by mouth 3 (three) times daily as needed for Cough. [facility] chlorphenir amine 4 mg tablet 04-14 00:00: 00 Yes [id number] 4mg Take 1 tablet by mouth every 6 (six) hours as needed for Allergies or Runny nose. [facility] multivitami n capsule 04-14 00:00: 00 Yes [id number] 1{capsu le} Take 1 capsule by mouth daily. [facility] calcium-mag nesium-zinc 333-133-8.3 mg Tab 04-14 00:00: 00 Yes [id number] Take as directed for daily dose. [facility] albuterol 90 mcg/actuati on inhaler 04-14 00:00: 00 Yes [id number] 2{puff} Inhale 2 Puffs every 4 (four) hours as needed for Wheezing or Shortness of Breath. [facility] ondansetron 4 mg disintegrat ing tablet 04-14 00:00: 00 Yes [id number] 4mg Take 1 tablet by mouth every 8 (eight) hours as needed for Nausea and Vomiting (N/V). [facility] benzonatate 100 mg capsule 04-14 00:00: 00 Yes [id number] 100mg Take 1 capsule by mouth 3 (three) times daily as needed for Cough. [facility] chlorphenir amine 4 mg tablet 04-14 00:00: 00 Yes [id number] 4mg Take 1 tablet by mouth every 6 (six) hours as needed for Allergies or Runny nose. [facility] multivitami n capsule 04-14 00:00: 00 Yes [id number] 1{capsu le} Take 1 capsule by mouth daily. [facility] calcium-mag nesium-zinc 333-133-8.3 mg Tab 04-14 00:00: 00 Yes [id number] Take as directed for daily dose. [facility] albuterol 90 mcg/actuati on inhaler 04-14 00:00: 00 Yes [id number] 2{puff} Inhale 2 Puffs every 4 (four) hours as needed for Wheezing or Shortness of Breath. [facility] ondansetron 4 mg disintegrat ing tablet 04-14 00:00: 00 Yes [id number] 4mg Take 1 tablet by mouth every 8 (eight) hours as needed for Nausea and Vomiting (N/V). [facility] benzonatate 100 mg capsule 04-14 00:00: 00 Yes [id number] 100mg Take 1 capsule by mouth 3 (three) times daily as needed for Cough. [facility] chlorphenir amine 4 mg tablet 04-14 00:00: 00 Yes [id number] 4mg Take 1 tablet by mouth every 6 (six) hours as needed for Allergies or Runny nose. [facility] multivitami n capsule 04-14 00:00: 00 Yes [id number] 1{capsu le} Take 1 capsule by mouth daily. [facility] calcium-mag nesium-zinc 333-133-8.3 mg Tab 04-14 00:00: 00 Yes [id number] Take as directed for daily dose. [facility] albuterol 90 mcg/actuati on inhaler 04-14 00:00: 00 Yes [id number] 2{puff} Inhale 2 Puffs every 4 (four) hours as needed for Wheezing or Shortness of Breath. [facility] ondansetron 4 mg disintegrat ing tablet 04-14 00:00: 00 Yes [id number] 4mg Take 1 tablet by mouth every 8 (eight) hours as needed for Nausea and Vomiting (N/V). [facility] vitamin D3-folic acid 5,000 unit- 1 mg Tab 04-14 00:00: 00 05-15 05:59 :00 No [id number] 1{tbl} Take 1 tablet by mouth daily for 30 days. [facility] vitamin D3-folic acid 5,000 unit- 1 mg Tab 04-14 00:00: 00 05-15 05:59 :00 No [id number] 1{tbl} Take 1 tablet by mouth daily for 30 days. [facility] vitamin D3-folic acid 5,000 unit- 1 mg Tab 04-14 00:00: 00 05-15 05:59 :00 No [id number] 1{tbl} Take 1 tablet by mouth daily for 30 days. [facility] sulfamethox azole-trime thoprim (BACTRIM DS) 800-160 mg per tablet 18 00:00: 00 Yes 1{tbl} Take 1 Tab by mouth every 12 (twelve) hours. [facility] sulfamethox azole-trime thoprim (BACTRIM DS) 800-160 mg per tablet 05-20 00:00: 00 Yes 1{tbl} Take 1 Tab by mouth every 12 (twelve) hours. [facility] traMADOL (ULTRAM) 50 mg tablet 05-20 00:00: 00 Yes 50mg Take 1 Tab by mouth every 6 (six) hours as needed for Pain (scale 4-6). Aiden Soto PA-C / Harshil Camilo MD DEYVI# [id number] DPS# [id number] x Lic.# [id number] NPI# [id number] [facility] proMETHazin e (PHENERGAN) 25 mg tablet 05-20 00:00: 00 Yes 25mg Take 1 Tab by mouth every 6 (six) hours as needed for Nausea and Vomiting (N/V). [facility] traMADOL (ULTRAM) 50 mg tablet 05-20 00:00: 00 Yes 50mg Take 1 Tab by mouth every 6 (six) hours as needed for Pain (scale 4-6). Aiden Soto PA-C / Harshil Camilo MD DEYVI# [id number] DPS# [id number] x Lic.# [id number] NPI# [id number] [facility] sulfamethox azole-trime thoprim (BACTRIM DS) 800-160 mg per tablet 05-20 00:00: 00 Yes 1{tbl} Take 1 Tab by mouth every 12 (twelve) hours. [facility] traMADOL (ULTRAM) 50 mg tablet 05-20 00:00: 00 Yes 50mg Take 1 Tab by mouth every 6 (six) hours as needed for Pain (scale 4-6). Aiden Soto PA-C / Harshil Camilo MD DEYVI# [id number] DPS# [id number] x Lic.# [id number] NPI# [id number] [facility] proMETHazin e (PHENERGAN) 25 mg tablet 05-20 00:00: 00 Yes 25mg Take 1 Tab by mouth every 6 (six) hours as needed for Nausea and Vomiting (N/V). [facility] proMETHazin e (PHENERGAN) 25 mg tablet 05-20 00:00: 00 Yes 25mg Take 1 Tab by mouth every 6 (six) hours as needed for Nausea and Vomiting (N/V). [facility] sulfamethox azole-trime thoprim (BACTRIM DS) 800-160 mg per tablet 05-20 00:00: 00 Yes 1{tbl} Take 1 Tab by mouth every 12 (twelve) hours. [facility] traMADOL (ULTRAM) 50 mg tablet 05-20 00:00: 00 Yes 50mg Take 1 Tab by mouth every 6 (six) hours as needed for Pain (scale 4-6). Aiden Soto PA-C / Harshil Camilo MD DEYVI# [id number] DPS# [id number] x Lic.# [id number] NPI# [id number] [facility] proMETHazin e (PHENERGAN) 25 mg tablet 05-20 00:00: 00 Yes 25mg Take 1 Tab by mouth every 6 (six) hours as needed for Nausea and Vomiting (N/V). [facility] sulfamethox azole-trime thoprim (BACTRIM DS) 800-160 mg per tablet 05-20 00:00: 00 Yes 1{tbl} Take 1 Tab by mouth every 12 (twelve) hours. [facility] traMADOL (ULTRAM) 50 mg tablet 05-20 00:00: 00 Yes 50mg Take 1 Tab by mouth every 6 (six) hours as needed for Pain (scale 4-6). Aiden Soto PA-C / Harshil Camilo MD DEYVI# [id number] DPS# [id number] x Lic.# [id number] NPI# [id number] [facility] proMETHazin e (PHENERGAN) 25 mg tablet 05-20 00:00: 00 Yes 25mg Take 1 Tab by mouth every 6 (six) hours as needed for Nausea and Vomiting (N/V). [facility] sulfamethox azole-trime thoprim (BACTRIM DS) 800-160 mg per tablet 05-20 00:00: 00 Yes 1{tbl} Take 1 Tab by mouth every 12 (twelve) hours. [facility] sulfamethox azole-trime thoprim (BACTRIM DS) 800-160 mg per tablet 05-20 00:00: 00 Yes 1{tbl} Take 1 Tab by mouth every 12 (twelve) hours. [facility] traMADOL (ULTRAM) 50 mg tablet 05-20 00:00: 00 Yes 50mg Take 1 Tab by mouth every 6 (six) hours as needed for Pain (scale 4-6). Aiden Soto PA-C / Harshil Camilo MD DEYVI# [id number] DPS# [id number] x Lic.# [id number] NPI# [id number] [facility] proMETHazin e (PHENERGAN) 25 mg tablet 05-20 00:00: 00 Yes 25mg Take 1 Tab by mouth every 6 (six) hours as needed for Nausea and Vomiting (N/V). [facility] traMADOL (ULTRAM) 50 mg tablet 05-20 00:00: 00 Yes 50mg Take 1 Tab by mouth every 6 (six) hours as needed for Pain (scale 4-6). Aiden Soto PA-C / Harshil Camilo MD DEYVI# [id number] DPS# [id number] x Lic.# [id number] NPI# [id number] [facility] sulfamethox azole-trime thoprim (BACTRIM DS) 800-160 mg per tablet 05-20 00:00: 00 Yes 1{tbl} Take 1 Tab by mouth every 12 (twelve) hours. [facility] traMADOL (ULTRAM) 50 mg tablet 05-20 00:00: 00 Yes 50mg Take 1 Tab by mouth every 6 (six) hours as needed for Pain (scale 4-6). Aiden Soto PA-C / Harshil Camilo MD DEYVI# [id number] DPS# [id number] x Lic.# [id number] NPI# [id number] [facility] proMETHazin e (PHENERGAN) 25 mg tablet 05-20 00:00: 00 Yes 25mg Take 1 Tab by mouth every 6 (six) hours as needed for Nausea and Vomiting (N/V). [facility] proMETHazin e (PHENERGAN) 25 mg tablet 05-20 00:00: 00 Yes 25mg Take 1 Tab by mouth every 6 (six) hours as needed for Nausea and Vomiting (N/V). [facility] sulfamethox azole-trime thoprim (BACTRIM DS) 800-160 mg per tablet 05-20 00:00: 00 Yes 1{tbl} Take 1 Tab by mouth every 12 (twelve) hours. [facility] traMADOL (ULTRAM) 50 mg tablet 05-20 00:00: 00 Yes 50mg Take 1 Tab by mouth every 6 (six) hours as needed for Pain (scale 4-6). Aiden Soto PA-C / Harshil Camilo MD DEYVI# [id number] DPS# [id number] x Lic.# [id number] NPI# [id number] [facility] proMETHazin e (PHENERGAN) 25 mg tablet 05-20 00:00: 00 Yes 25mg Take 1 Tab by mouth every 6 (six) hours as needed for Nausea and Vomiting (N/V). [facility] Vital Signs Vital Name Observation Time Observation Value Comments S ource Systolic blood pressure 2023-01-01 12:43:00 133 mm[Hg] [facility] Diastolic blood pressure 2023-01-01 12:43:00 86 mm[Hg] [facility] Heart rate 2023-01-01 12:43:00 66 /min [facility] Body temperature 2023-01-01 12:43:00 36.5 Maritza [facility] Respiratory rate 2023-01-01 12:43:00 18 /min [facility] Body height 2023-01-01 12:43:00 180.3 cm [facility] Body weight 2023-01-01 12:43:00 72.576 kg [facility] BMI 2023-01-01 12:43:00 22.32 kg/m2 [facility] Oxygen saturation in Arterial blood by Pulse oximetry 2023-01-01 12:43:00 100 /min [facility] Systolic blood pressure 2020-04-14 14:37:00 140 mm[Hg] [facility] Diastolic blood pressure 2020-04-14 14:37:00 72 mm[Hg] [facility] Heart rate 2020-04-14 14:37:00 79 /min [facility] Body temperature 2020-04-14 14:37:00 37.5 Maritza [facility] Respiratory rate 2020-04-14 14:37:00 14 /min [facility] Body height 2020-04-14 14:37:00 180.3 cm [facility] Body weight 2020-04-14 14:37:00 73.029 kg [facility] BMI 2020-04-14 14:37:00 22.45 kg/m2 [facility] Oxygen saturation in Arterial blood by Pulse oximetry 2020-04-14 14:37:00 98 /min [facility] Procedures Procedure Date / Time Performed Performing Clinicia n Source ASSIGNMENT OF BENEFITS 2023-01-01 13:25:45 Docto r Unassigned, [place] [facility] COVID-19 (ID NOW RAPID TESTING) 2023-01-01 13:16:00 Emil Srivastava [facility] CONSENT/REFUSAL FOR DIAGNOSIS AND TREATMENT 2023-01-01 12:33:14 Doctor Unassigned, [place] [facility] URINALYSIS 2020-04-14 15:11:00 Rebel Dao [facility] COVID-19 (ID NOW RAPID TESTING) 2020-04-14 15:11:00 Rebel Dao [facility] NOTICE OF PRIVACY PRACTICES 2020-04-14 14:26:27 Doctor Unassigned, [place] [facility] CONSENT/REFUSAL FOR DIAGNOSIS AND TREATMENT 2020-04-14 14:26:16 Doctor Unassigned, [place] [facility] Encounters Start Date/Time End Date/Time Encounter Type Admission Type Attending Clinicians Care Facility Care Department Encounter ID Source 2022-07-24 13:24:02 Outpatient IBNS [facility] [id number] - [id number] [facility] 2022-07-22 19:38:37 Outpatient IBNS IBNS [id number] - [id number] [facility] 2022-07-22 16:51:43 Outpatient IBNS IB [id number] - [id number] [facility] 2021-01-29 16:57:35 Emergency [facility] [id number] [facility] 2023-01-01 07:43:00 2023-01-01 09:47:00 Emergency X EMIL SRIVASTAVA [facility] ERT [id number] [facility] 2023-01-01 07:43:00 2023-01-01 09:47:00 Emergency Emil Srivastava [facility] .840.114 350.1.13.10 4.2.7.2.686 [id number] [facility] 2021-04-10 08:57:00 2021-04-10 10:10:00 Emergency X CASSANDRA REID [facility] ERT [id number] [facility] 2021-04-10 08:57:00 2021-04-10 10:10:00 Emergency Cassandra Reid [facility] [id number] 350.1.13.10 4.2.7.2.686 [id number] [facility] 2020-04-26 18:12:12 2020-04-26 18:32:12 Laboratory Only Lab, Adc Fam Pob Amanda Caputo [facility] [address] .84.114 350.1.13.10 4.2.7.2.686 [id number] [facility] 2020-04-26 18:20:00 2020-04-26 18:20:00 Outpatient AMANDA LEONE [facility] [id number] [facility] 2020-04-25 09:20:00 2020-04-25 09:20:00 Outpatient R JOHANNATORSTEN [facility] [id number] [facility] 2020-04-14 08:38:00 2020-04-14 10:13:00 Emergency Rebel Dao [facility] 1..114 350.1.13.10 4.2.7.2.686 [id number] [facility] 2020-04-14 00:00:00 2020-04-14 00:00:00 Orders Only Doctor Unassigned, [place] [facility] 1.114 350.1.13.10 4.2.7.2.686 [id number] [facility] 2019-10-14 00:00:00 2019-10-14 00:00:00 Patient Secure Msg Doctor Unassigned, [place] [facility] [employer] [facility] 1.114 350.1.13.10 4.2.7.2.686 [id number] [facility] 2019-10-11 09:42:04 2019-10-11 10:02:04 Laboratory Only Lab, Adc Fam Pob Amanda Caputo [facility] .114 350.1.13.10 4.2.7.2.686 [id number] [facility] 2019-10-11 09:40:00 2019-10-11 09:40:00 Outpatient AMANDA LEONE [facility] [id number] [facility] 2019-10-11 00:00:00 2019-10-11 00:00:00 Letter (Out) Doctor Unassigned, [place] [facility] 1.114 350.1.13.10 4.2.7.2.686 [id number] [facility] Results Test Description Test Time Test Comments Results Result Co mments [facility]2020-04-14 15:30:00* Test Item Value Reference Range Interpretation Comme nts SARS-CoV-2 Rapid ID NOW (test code = 66302-8) Positive Not Detected A SRIDHAR (test code = SRIDHAR) ID NOW COVID-19 As say is an isothermal nucleic acid amplification test intended for the qualitative detection of nucleic acid from SARS-CoV-2 viral RNA in nasopharyngeal (TRAY WORKER) specimens. It is used under Emergency Use [...] patient testing if clinically indicated. Lab Interpretation (test code = 82098-5) Abnormal [facility]
--- NOTE | 2023-05-09 15:46 | ER ---
Nurse's Notes [facility] Name: Yunier Mejias Age: 27 yrs Sex: Male : 1995 Arrival Date: 05/09/2023 Time: 14:07 Bed DX3 Private MD: Diagnosis: Acute upper respiratory infection, unspecified Presentation: 05/09 14:21 Chief complaint: Patient states: flu symptoms since about 4pm yesterday. Body aches, ko1 cough, headache. Coronavirus screen: chills, congestion, cough unrelated to allergies, headache, muscle pain, runny nose, sore throat. Ebola Screen: No symptoms or risks identified at this time. Initial Sepsis Screen: Does the patient meet any 2 criteria? No. Patient's initial sepsis screen is negative. Does the patient have a suspected source of infection? No. Patient's initial sepsis screen is negative. Risk Assessment: Do you want to hurt yourself or someone else? Patient reports no desire to harm self or others. Onset of symptoms is unknown. 14:21 Method Of Arrival: Ambulatory ko1 14:21 Acuity: MIGUEL 4 ko1 Triage Assessment: 14:24 General: Appears in no apparent distress. Behavior is calm, cooperative, appropriate ko1 for age. Pain: Complains of pain in top of head and forehead. Historical: - Allergies: 14:24 PENICILLINS; ko1 - Immunization history:: Adult Immunizations up to date. - Social history:: Smoking status: Patient denies any tobacco usage or history of. Screenin:00 [facility] ED Fall Risk Assessment (Adult) History of falling in the last 3 months, ap3 including since admission No falls in past 3 months (0 pts). Abuse screen: Denies threats or abuse. Nutritional screening: No deficits noted. Tuberculosis screening: No symptoms or risk factors identified. Vital Signs: 14:21 BP 127 / 82; Pulse 87; Resp 16; Temp 97.7; Pulse Ox 100% ; ko1 ED Course: 14:09 Patient arrived in ED. im 14:11 Charline Nichols FNP-C is PHCP. kb 14:11 Willie Woodard DO is Attending Physician. kb 14:24 Triage completed. ko1 14:24 Arm band placed on right wrist. Patient placed in an exam room, on a stretcher, Patient ko1 notified of wait time. 14:28 COVID-19 SARS RT PCR Sent. ko1 14:28 Flu Sent. ko1 16:00 Patient has correct armband on for positive identification. ap3 16:00 No provider procedures requiring assistance completed. Patient did not have IV access ap3 during this emergency room visit. 16:01 Provided Education on: discharge instructions. ap3 Administered Medications: No medications were administered Medication: 16:01 VIS not applicable for this client. ap3 Outcome: 15:45 Discharge ordered by . rocío 16:00 Discharged to home ambulatory, ap3 16:00 Condition: good 16:00 Discharge instructions given to patient, Instructed on discharge instructions, follow up and referral plans. Demonstrated understanding of instructions, follow-up care, 16:01 Patient left the ED. ap3 Signatures: Charline Nichols, DIRECTOR OF LOGISTICS-C DAGO-Ester Rankin RN RN ap3 Keshia Rojas, GLENN RN ko1 Floresita Denise
--- NOTE | 2023-05-09 15:46 | EDPHYS ---
Physician Documentation [facility] Name: Yunier Mejias Age: 27 yrs Sex: Male : 1995 Arrival Date: 05/09/2023 Time: 14:07 Bed DX3 Private MD: ED Physician Willie Woodard HPI: 05/09 14:59 This 27 yrs old Male presents to ER via Ambulatory with complaints of Flu Symptoms. kb 14:59 Patient is a 27-year-old male who presents for cough, congestion, body aches and kb malaise that started at 4 PM yesterday. Denies fever.. Historical: - Allergies: 14:24 PENICILLINS; ko1 - Immunization history:: Adult Immunizations up to date. - Social history:: Smoking status: Patient denies any tobacco usage or history of. ROS: 14:59 Abdomen/GI: Negative for abdominal pain, nausea, vomiting, diarrhea, and constipation, kb 14:59 Constitutional: Positive for body aches, fatigue, malaise, 14:59 ENT: Positive for sinus congestion, 14:59 Respiratory: Positive for cough, 14:59 All other systems are negative, Exam: 14:59 Constitutional: This is a well developed, well nourished patient who is awake, alert, kb and in no acute distress. Head/Face: Normocephalic, atraumatic. ENT: Moist Mucous membranes Cardiovascular: Regular rate Respiratory: Respirations even and unlabored. No increased work of breathing. Talking in full sentences Skin: Warm, dry with normal turgor. Normal color. MS/ Extremity: Pulses equal, no cyanosis. Neurovascular intact. Full, normal range of motion. Neuro: Awake and alert, GCS 15, oriented to person, place, time, and situation. Moves all extremities. Normal gait. Vital Signs: 14:21 BP 127 / 82; Pulse 87; Resp 16; Temp 97.7; Pulse Ox 100% ; ko1 MDM: 14:11 Patient medically screened. kb 15:00 Differential diagnosis: Flu, COVID, URI. Data reviewed: vital signs, nurses notes. kb 15:45 I considered the following discharge prescriptions or medication management in the emergency department I discussed and recommended Over The Counter medications, Antibiotics: At this time antibiotics are not recommended, Antivirals: At this time, antivirals are not recommended. Counseling: I had a detailed discussion with the patient and/or guardian regarding the historical points, exam findings, and any diagnostic results supporting the discharge/admit diagnosis, lab results, the need for outpatient follow up, a family practitioner, to return to the emergency department if symptoms worsen or persist or if there are any questions or concerns that arise at home. 05/09 14:21 Order name: Flu; Complete Time: 15:45 kb 05/09 14:21 Order name: COVID-19 SARS RT PCR; Complete Time: 15:09 kb Administered Medications: No medications were administered Disposition: 15:55 I was immediately available on-site in the Emergency Department for consultation in the ms3 care of the patient. Disposition Summary: 05/09/23 15:45 Discharge Ordered Notes: Location: Home kb Condition: Stable kb Diagnosis - Acute upper respiratory infection, unspecified kb Followup: kb - With: Emergency Department - When: As needed - Reason: Worsening of condition Followup: kb - With: Private Physician - When: 2 - 3 days - Reason: Recheck today's complaints, Continuance of care, Re-evaluation by your physician Discharge Instructions: - Discharge Summary Sheet kb - Upper Respiratory Infection, Adult, Iceo-bo-Baru kb - Viral Respiratory Infection, Nzir-Tv-Tbyl kb Forms: - Medication Reconciliation Form kb - Thank You Letter kb - Antibiotic Education kb - Prescription Opioid Use kb - Patient Portal Instructions kb - Leadership Thank You Letter kb - Work release form ap3 Signatures: Dispatcher [employer] Charline Marina, DAGO-C DAGO-Willie Randall DO DO ms3 Keshia Rojas, RN RN ko1
[2023-05-10 23:24] VITALS: BP 127/82; TEMP 97.7; O2SAT 100
== END ==
LOC: ER 14:07
DX: J06.9 Acute upper respiratory infection, unspecified (principal); Z11.52 Encounter for screening for COVID-19
CPT/HCPCS: 87635; 87804

== ENCOUNTER 2023-11-26 08:35 | Emergency (ER) | payer SELFPAY ==
--- OUTSIDE RECORDS SUMMARY | 2023-11-26 08:38 | XMS REPORT | Continuity of Care Document ---
Author Name Unknown Address [address] [place] [address] [facility] Address [address] [place] [address] Care Team Providers Care Team Coordinator Name Role Phone PCP, PATIENT DOES NOT HAVE A Primary Care Physic todd Unavailable EMIL SRIVASTAVA Attending Clinician Unavailable Emil Srivastava MD Attending Clinician [phone] CASSANDRA EM Attending Clinician Unavailable Cassandra Em MD Attending Clinician [phone] Lab, Adc Fam Pob I Attending Clinician UnavailAmanda Jain Attending Clinician [phone] AMANDA GOMEZ Attending Clinician Unavailable TORSTEN SPENCER Attending Clinician Unavailable Rebel Dao DO Attending Clinician [phone] Doctor Unassigned, [place] Attending Clinician U navailable Payers Payer Name Policy Type Policy Number Effective Date Expirati on Date Source SELF-PAY CI [id number] [facility] Work in Field [facility] [id number] 2019 00:00:00 [facility] [id number] 2021 00:00:00 Allergies, Adverse Reactions, Alerts Allergy Name Allergy Type Status Severity Reaction(s) Onset Date Inactive Date Treating Clinician Comments Source Penicill ins Propensi ty to adverse reaction s Active Hives 04-14 00:00: 00 [facility] Penicill ins Propensi ty to adverse reaction s Active Hives 04-14 00:00: 00 [facility] PENICILL INS Drug Class Active Hives 04-14 00:00: 00 [facility] NO KNOWN ALLERGIE S Drug Class Active [facility] Social History Social Habit Start Date Stop Date Quantity Comments Source [facility] to SARS-CoV-2 (event) 2021-03-11 00:00:00 2021-04-10 08:44:00 Not sure [facility] Sex Assigned At 1995 00:00:00 1995 00:00:00 [facility] Smoking Status Start Date Stop Date Source Tobacco smoking consumption unknown [facility] Medications Ordered Medication Name Filled Medication Name Start Date Stop Date Current Medication? Ordering Clinician Indication Dosage Frequency Signature (SIG) Comments Components Source multivitami n capsule 04-14 00:00: 00 Yes [id number] 1{capsu le} Take 1 capsule by mouth daily. [facility] calcium-mag nesium-zinc 333-133-8.3 mg Tab 04-14 00:00: 00 Yes [id number] Take as directed for daily dose. [facility] benzonatate 100 mg capsule 04-14 00:00: 00 Yes [id number] 100mg Take 1 capsule by mouth 3 (three) times daily as needed for Cough. [facility] chlorphenir amine 4 mg tablet 04-14 00:00: 00 Yes [id number] 4mg Take 1 tablet by mouth every 6 (six) hours as needed for Allergies or Runny nose. [facility] multivitami n capsule 04-14 00:00: 00 Yes [id number] 1{capsu le} Take 1 capsule by mouth daily. [facility] albuterol 90 mcg/actuati on inhaler 04-14 00:00: 00 Yes [id number] 2{puff} Inhale 2 Puffs every 4 (four) hours as needed for Wheezing or Shortness of Breath. [facility] ondansetron 4 mg disintegrat ing tablet 04-14 00:00: 00 Yes [id number] 4mg Take 1 tablet by mouth every 8 (eight) hours as needed for Nausea and Vomiting (N/V). [facility] calcium-mag nesium-zinc 333-133-8.3 mg Tab 04-14 00:00: 00 Yes [id number] Take as directed for daily dose. [facility] vitamin D3-folic acid 5,000 unit- 1 mg Tab 04-14 00:00: 00 05-15 05:59 :00 No [id number] 1{tbl} Take 1 tablet by mouth daily for 30 days. [facility] sulfamethox azole-trime thoprim (BACTRIM DS) 800-160 mg per tablet 05-20 00:00: 00 Yes 1{tbl} Take 1 Tab by mouth every 12 (twelve) hours. [facility] proMETHazin e (PHENERGAN) 25 mg tablet 05-20 00:00: 00 Yes 25mg Take 1 Tab by mouth every 6 (six) hours as needed for Nausea and Vomiting (N/V). [facility] traMADOL (ULTRAM) 50 mg tablet 05-20 00:00: 00 Yes 50mg Take 1 Tab by mouth every 6 (six) hours as needed for Pain (scale 4-6). Aiden Soto PA-C / Harshil Camilo MD DEYVI# [id number] DPS# [id number] x Lic.# [id number] NPI# [id number] [facility] Vital Signs Vital Name Observation Time Observation Value Comments S ource Systolic blood pressure 2023-01-01 12:43:00 133 mm[Hg] [facility] Diastolic blood pressure 2023-01-01 12:43:00 86 mm[Hg] [facility] Heart rate 2023-01-01 12:43:00 66 /min [facility] Body temperature 2023-01-01 12:43:00 36.5 Maritza [facility] Respiratory rate 2023-01-01 12:43:00 18 /min [facility] Body height 2023-01-01 12:43:00 180.3 cm [facility] Body weight 2023-01-01 12:43:00 72.576 kg [facility] BMI 2023-01-01 12:43:00 22.32 kg/m2 [facility] Oxygen saturation in Arterial blood by Pulse oximetry 2023-01-01 12:43:00 100 /min [facility] Systolic blood pressure 2020-04-14 14:37:00 140 mm[Hg] [facility] Diastolic blood pressure 2020-04-14 14:37:00 72 mm[Hg] [facility] Heart rate 2020-04-14 14:37:00 79 /min [facility] Body temperature 2020-04-14 14:37:00 37.5 Maritza [facility] Respiratory rate 2020-04-14 14:37:00 14 /min [facility] Body height 2020-04-14 14:37:00 180.3 cm [facility] Body weight 2020-04-14 14:37:00 73.029 kg [facility] BMI 2020-04-14 14:37:00 22.45 kg/m2 [facility] Oxygen saturation in Arterial blood by Pulse oximetry 2020-04-14 14:37:00 98 /min [facility] Procedures Procedure Date / Time Performed Performing Clinicia n Source ASSIGNMENT OF BENEFITS 2023-01-01 13:25:45 Docto r Unassigned, [place] [facility] COVID-19 (ID NOW RAPID TESTING) 2023-01-01 13:16:00 Emil Srivastava [facility] CONSENT/REFUSAL FOR DIAGNOSIS AND TREATMENT 2023-01-01 12:33:14 Doctor Unassigned, [place] [facility] URINALYSIS 2020-04-14 15:11:00 Rebel Dao [facility] COVID-19 (ID NOW RAPID TESTING) 2020-04-14 15:11:00 Rebel Dao [facility] NOTICE OF PRIVACY PRACTICES 2020-04-14 14:26:27 Doctor Unassigned, [place] [facility] CONSENT/REFUSAL FOR DIAGNOSIS AND TREATMENT 2020-04-14 14:26:16 Doctor Unassigned, [place] [facility] Encounters Start Date/Time End Date/Time Encounter Type Admission Type Attending [facility] Care Facility Care Department Encounter ID Source 2022-07-24 13:24:02 Outpatient IBNS IBNS [id number] - [id number] [facility] 2022-07-22 19:38:37 Outpatient IBNS IBNS [id number] - [id number] [facility] 2022-07-22 16:51:43 Outpatient IBNS NS [id number] - [id number] [facility] 2021-01-29 16:57:35 Emergency [facility] [id number] [facility] 2023-01-01 07:43:00 2023-01-01 09:47:00 Emergency EMIL GARCIA [facility] ERT [id number] [facility] 2023-01-01 07:43:00 2023-01-01 09:47:00 Emergency Emil Srivastava [facility] 1.114 [id number] [id number] [facility] 2021-04-10 08:57:00 2021-04-10 10:10:00 Emergency CASSANDRA LAYTON [facility] ERT [id number] [facility] 2021-04-10 08:57:00 2021-04-10 10:10:00 Emergency Cassandra Em [facility] ..114 [id number] [id number] [id number] [facility] 2020-04-26 18:12:12 2020-04-26 18:32:12 Laboratory Only Lab, Adc Fam Amanda Sarmiento [facility] ER [address] [id number] [facility] 2020-04-26 18:20:00 2020-04-26 18:20:00 Outpatient AMANDA LEONE [facility] [id number] [facility] 2020-04-25 09:20:00 2020-04-25 09:20:00 Outpatient R TORSTEN SPENCER [facility] [id number] [facility] 2020-04-14 08:38:00 2020-04-14 10:13:00 Emergency Rebel [facility] [id number] [id number] [id number] [id number] [facility] 2020-04-14 00:00:00 2020-04-14 00:00:00 Orders Only Doctor Unassigned, [place] [facility] 1..114 [id number] [id number] [id number] [facility] 2019-10-14 00:00:00 2019-10-14 00:00:00 Patient Secure Msg Doctor Unassigned, [place] [facility] PATROL [facility] 1..114 [id number] [id number] [id number] [facility] 2019-10-11 09:42:04 2019-10-11 10:02:04 Laboratory Only Lab, Adc Fam [facility]ob [facility] 1.114 [id number] [id number] [id number] [facility] 2019-10-11 09:40:00 2019-10-11 09:40:00 Outpatient AMANDA LEONE [facility] [id number] [facility] 2019-10-11 00:00:00 2019-10-11 00:00:00 Letter (Out) Doctor Unassigned, [place] [facility] [id number] [id number] [facility] Results Test Description Test Time Test Comments Results Result Co mments Source [facility]2020-04-14 15:30:00* Test Item Value Reference Range Interpretation Comme nts SARS-CoV-2 Rapid ID NOW (test code = 23190-5) Positive Not Detected A SRIDHAR (test code = SRIDHAR) ID NOW COVID-19 As say is an isothermal nucleic acid amplification test intended for the qualitative detection of nucleic acid from SARS-CoV-2 viral RNA in nasopharyngeal (HATCH TENDER) specimens. It is used under Emergency Use [...] clinically indicated. Lab Interpretation (test code = 47256-6) Abnormal [facility]
[2023-11-26] MEDS ORDERED: IBUPROFEN 400 MG TAB ONE (08:51)
[2023-11-26] MEDS ORDERED: SMZ./TMP. 800/160 MG TABLET ONE (08:51)
--- NOTE | 2023-11-26 08:57 | EDPHYS ---
Physician Documentation [facility] Name: Yunier Mejias Age: 27 yrs Sex: Male : 1995 Arrival Date: 11/26/2023 Time: 08:35 Bed 6 Private MD: ED Physician Aiden Coy HPI: 11/25 08:49 This 27 yrs old Male presents to ER via Ambulatory with complaints of Left Elbow cp Swelling. 08:49 Onset: The symptoms/episode began/occurred 2 day(s) ago. Associated signs and symptoms: cp Pertinent negatives: fever, drainage. Modifying factors: the patient symptoms are aggravated by bending elbow. The patient has experienced similar episodes in the past, several times. ROS: 08:50 Constitutional: Positive for chills, Negative for body aches, fever, poor PO intake, cp 08:50 Respiratory: Negative for cough, shortness of breath, wheezing, 08:50 Abdomen/GI: Negative for abdominal pain, nausea, vomiting, diarrhea, 08:50 MS/extremity: Positive for pain, swelling, tenderness, of the left elbow, Negative for injury or acute deformity, decreased range of motion, 08:50 Skin: Positive for cellulitis, of the left elbow, Negative for rash, 08:50 Neuro: Negative for altered mental status, headache, numbness, weakness, 08:50 All other systems are negative, Exam: 08:51 Head/Face: Normocephalic, atraumatic. cp 08:51 Constitutional: The patient appears in no acute distress, alert, awake, comfortable, non-toxic, well developed, well nourished, 08:51 Eyes: Periorbital structures: appear normal, Conjunctiva: normal, no exudate, no injection, Sclera: no appreciated abnormality, Lids and lashes: appear normal, bilaterally, 08:51 ENT: External ear(s): are unremarkable, Nose: is normal, Mouth: Lips: moist, Oral mucosa: moist, Posterior pharynx: Airway: no evidence of obstruction, patent, 08:51 Chest/axilla: Inspection: normal, 08:51 Cardiovascular: Rate: normal, Rhythm: regular, 08:51 Respiratory: the patient does not display signs of respiratory distress, Respirations: normal, no use of accessory muscles, no retractions, labored breathing, is not present, Breath sounds: are clear throughout, no decreased breath sounds, no stridor, no wheezing, 08:51 Abdomen/GI: Inspection: abdomen appears normal, 08:51 Musculoskeletal/extremity: Extremities: grossly normal except: noted in the left elbow: medial side of left elbow with mild erythema, mild swelling, tenderness to palpation. single erythematous papule with no drainage expressed, ROM: full active range of motion, in the left elbow, Pulses: noted to be 2+ in the left radial artery, the left hand and left arm Sensation intact. Vital Signs: 08:47 BP 125 / 84; Pulse 71; Resp 17; Temp 98.5; Pulse Ox 100% ; Weight 78.02 kg; Height 5 ap3 ft. 11 in. ; Pain 5/10; 08:47 Body Mass Index 23.99 (78.02 kg, 180.34 cm) ap3 08:47 Pain Scale: Adult ap3 MDM: 08:44 Patient medically screened. cp 08:55 Differential diagnosis: cellulitis, abscess, bursitis, septic joint, sepsis. Data cp reviewed: vital signs, nurses notes, and as a result, I will discharge patient. Test considered but Not performed: X-ray: left elbow. Administered Medications: 09:01 Drug: Trimethoprim-Sulfamethoxazole PO (160 mg-800 mg (DS) 2 tablet PO once Route: PO; iw 09:01 Drug: Ibuprofen PO 800 mg PO once Route: PO; iw Disposition Summary: 11/26/23 08:57 Discharge Ordered Notes: Location: Home cp Problem: new cp Symptoms: have improved cp Condition: Stable cp Diagnosis - Cellulitis of left upper limb - elbow cp Followup: cp - With: Private Physician - When: 1 - 2 days - Reason: Worsening of condition Discharge Instructions: - Discharge Summary Sheet cp - Cellulitis, Adult cp Forms: - Medication Reconciliation Form cp - Antibiotic Education cp - Prescription Opioid Use cp - Patient Portal Instructions cp - Leadership Thank You Letter cp - Work release form ap3 Prescriptions: - Ibuprofen 800 mg Oral Tablet - take 1 tablet ORAL route every 8 hours As needed take with food; 30 tablet; cp Refills: 0, Product Selection Permitted - Bactrim DS 800-160 mg Oral Tablet - take 1 tablet ORAL route every 12 hours for 10 days; 20 tablet; Refills: 0, cp Product Selection Permitted Addendum: 11/30/2023 07:40 I was immediately available for consultation during this patient's visit. I did not e c2 personally see the patient or discuss the patient with the IMANI. . Signatures: Rachel Valdez RN RN iw Page, Corey, PA PA cp Corral, Edwin, MD MD ec2
--- NOTE | 2023-11-26 08:57 | ER ---
Nurse's Notes [facility] Name: Yunier Mejias Age: 27 yrs Sex: Male : 1995 Arrival Date: 11/26/2023 Time: 08:35 Bed 6 Private MD: Diagnosis: Cellulitis of left upper limb-elbow Presentation: 11/25 08:46 Chief complaint:. iw 08:47 Coronavirus screen: At this time, the client does not indicate any symptoms associated ap3 with coronavirus-19. Ebola Screen: No symptoms or risks identified at this time. Initial Sepsis Screen: Does the patient meet any 2 criteria? No. Patient's initial sepsis screen is negative. Does the patient have a suspected source of infection? No. Patient's initial sepsis screen is negative. Risk Assessment: Do you want to hurt yourself or someone else? Patient reports no desire to harm self or others. Onset of symptoms was November 24, 2023. 08:47 Acuity: MIGUEL 4 ap3 08:47 Method Of Arrival: Ambulatory ap3 08:48 Chief complaint: Patient states: he noticed a painful bump on the inside of his left ap3 elbow Sunday11/24/23. patient currently rates the pain as a 5/10 on the pain scale. Screenin:48 [facility] ED Fall Risk Assessment (Adult) History of falling in the last 3 months, iw including since admission No falls in past 3 months (0 pts) Confusion or Disorientation No (0 pts) Intoxicated or Sedated No (0 pts) Impaired Gait No (0 pts). [facility] ED Fall Risk Assessment (Adult) Mobility Assist Device Used No (0 pt) Altered Elimination No (0 pt) Score/Fall Risk Level 0 - 2 = Low Risk Oriented to surroundings, Maintained a safe environment. Abuse screen: Denies threats or abuse. Nutritional screening: On. Tuberculosis screening: No symptoms or risk factors identified. Assessment: 08:46 General: Appears in no apparent distress. Behavior is calm, cooperative. Pain: iw Complains of pain in left elbow Pain began 2-3 days ago. Neuro: Level of Consciousness is awake, alert, obeys commands, Oriented to person, place, time, situation, Moves all extremities. Cardiovascular: Patient's skin is warm and dry. Respiratory: Respiratory effort is even, unlabored, Respiratory pattern is regular, symmetrical. GI: Abdomen is non-distended. Derm: Skin is intact, is healthy with good turgor, Reports pain. Musculoskeletal: Range of motion: intact in all extremities, Swelling present in left elbow. Vital Signs: 08:47 BP 125 / 84; Pulse 71; Resp 17; Temp 98.5; Pulse Ox 100% ; Weight 78.02 kg; Height 5 ap3 ft. 11 in. ; Pain 5/10; 08:47 Body Mass Index 23.99 (78.02 kg, 180.34 cm) ap3 08:47 Pain Scale: Adult ap3 ED Course: 08:37 Patient arrived in ED. mg5 08:44 Russell Kidd PA is PHCP. cp 08:44 Aiden Coy MD is Attending Physician. cp 08:46 SANDEEP SIMON, RN is Primary Nurse. dd2 08:48 Triage completed. ap3 08:48 Patient has correct armband on for positive identification. Provided Education on: POC. iw 08:48 No provider procedures requiring assistance completed. Patient did not have IV access iw during this emergency room visit. Administered Medications: 09:01 Drug: Trimethoprim-Sulfamethoxazole PO (160 mg-800 mg (DS) 2 tablet PO once Route: PO; iw 09:01 Drug: Ibuprofen PO 800 mg PO once Route: PO; iw Medication: 08:48 VIS not applicable for this client. iw Outcome: 08:57 Discharge ordered by . cp 09:11 Patient left the ED. iw Signatures: Rachel Valdez RN RN iw Russell Kidd PA PA cp Prokisch, Amanda, RN RN [facility] Susy Almendarez mg5 SANDEEP SIMON RN RN dd2
[2023-11-26 09:15] VITALS: BP 125/84; TEMP 98.5; O2SAT 100
== END 2023-11-26 09:11 | disposition home or self-care (01) ==
LOC: ER 08:35
DX: L03.114 Cellulitis of left upper limb (principal)
CPT/HCPCS: 99282